=== PATIENT | female | born 1985 | race Caucasian/White ===

== ENCOUNTER 2016-10-12 16:56 | Emergency (ER) | payer MEDICAID ==
[~2016-10-12] VITALS: Ht 157.5 cm; Wt 72.6 kg
[~2016-10-12 16:56] MED LIST: ACYCLOVIR 400M400 MG PO; ALBUTEROL2 PUFFS/17 IN; ALEVE220 MG PO; AMITRIPTYLINE 225 MG PO; AMOXICILLIN 50500 MG PO; AMOXICILLIN500 M2 PO; AMOXICOT500 MG PO; APAP/BUTALBITAL1 TA1 PO; ASPIRIN 325MG325 MG PO; BACLOFEN20 MG PO; BACTRIM DS 8001 TAB PO; BACTROBAN CR, 115 GM EX; BACTROBAN2% TP; BENZONATATE100 MG PO; BIAXIN250 MG PO; BIRTH CONT; CIPRO 500MG TA500 MG PO; CIPRO500 MG PO; CLARITIN 10MG T10 MG PO; COMBIVENT INH14.7 GM IN; CORTISPORI7.5 ML/BOT OP; DARVOCET-N 1001 EACH PO; DIAZEPAM10 MG PO; DOXYCYCLINE100 M1 PO; FIORICET 325 MG1 TAB PO; FIORICET1 CAP PO; FLEXERIL10 M1 PO; FLEXERIL10 MG PO; HYDROCODONE 7.51 TAB PO; KEFLEX 500MG.500 MG PO; LORATADINE10 MG PO; LORAZEPAM1 MG/TABLE PO; LORTAB 5/500 501 TAB PO; MAXALT-MLT10 MG PO; MEDROL 4MG. DOSE4 MG PO; MOTRIN 400MG.400 MG PO; MOTRIN 600MG.600 MG PO; NAPROSYN 500MG500 MG PO; NAPROSYN500 M1 PO; NOMEDS; NOMEDS *; NOMEDS XX; NORCO 325 MG-51 TAB PO; PHENERGAN 25MG.25 M1 PO; PREDNISONE 20MG20 MG PO; PREDNISONE50 MG PO; PRILOSEC OTC20 MG PO; PROMETHAZINE25 M1 PO; PYRIDIUM 200MG200 MG PO; SEPTRA DS 800 M1 TAB PO; SKELAXIN 800MG800 MG PO; SKELAXIN800 MG PO; TESSALON PERLE100 MG PO; TORADOL10 M1 PO; TRAMADOL 50MG T50 MG PO; TYLENOL 8 HOUR650 MG PO; TYLENOL ES500 M1 PO; TYLENOL ES500 MG PO; ULTRAM 50 MG TA50 MG PO; ULTRAM ER100 MG PO; VIBRAMYCIN 100100 MG PO; VICODIN 5/500 T1 TAB PO; VICODIN 7.5/501 EACH PO; VICODIN ES 7.51 EACH PO; VOLTAREN75 MG PO; WELLBUTRIN 150150 MG PO; ZANTAC 150150 MG PO; ZOFRAN4 MG PO; ZYRTEC-D 12HR 51 TER PO; Zofran4 MG PO; [UNRECOGNIZED DRUG - OTHER] PO
--- OUTSIDE RECORDS SUMMARY | 2016-10-12 17:05 | External Medical Summary Rpt ---
Author Author [facility] Organization [facility] Address Unknown Phone Unavailable Care Team Providers Care Production Quality Analyst Name Role Phone DR BRADLEY PCP [phone] Encounter [facility] [id number] Date(s): 07/03/16 - 07/03/16 [address] [place] [address] [facility] Discharge Diagnosis: Cannabis abuse Discharge Diagnosis: Depression Discharge Diagnosis: Opioid abuse Discharge Diagnosis: Cocaine abuse Discharge Disposition: [facility] OP Attending Physician: MACI VAZQUEZ, -PSY Admitting Physician: JOHANA CANALES MD-EMR Referring Physician: BRADLEY, SELF REFERRED Reason for Visit EPS Vital Signs Most recent 1 2 to oldest [Reference Range]: Temperature Oral Oral Source (07/03/16 2:51 PM) (07/03/16 9:32 AM) Temperature Fahrenheit Fahrenheit Mode (07/03/16 2:51 PM) (07/03/16 9:32 AM) Temperature, 97.7 Deg F 97.7 Deg F Fahrenheit (07/03/16 2:51 PM) (07/03/16 9:32 AM) [96.8-99.7 Deg F] Clinical 36.5 Deg C 36.5 Deg C Temperature, (07/03/16 2:51 PM) (07/03/16 9:32 AM) C Peripheral 73 bpm 82 bpm Pulse Rate (07/03/16 2:51 PM) (07/03/16 9:32 AM) [60-100 bpm] Respiratory 18 Breaths/Min 16 Breaths/Min Rate [14-20 (07/03/16 2:51 PM) (07/03/16 9:32 AM) Breaths/Min] Blood Arm, left upper Pressure (07/03/16 2:51 PM) Location Blood Non-Invasive BP Device Pressure (07/03/16 2:51 PM) Source Blood 132/72 mmHg 116/66 mmHg Pressure (07/03/16 2:51 PM) (07/03/16 9:32 AM) [90-140/60-9 0 mmHg] Oxygen 100 % 99 % Saturation (07/03/16 2:51 PM) (07/03/16 9:32 AM) [94-100 %] Oxygen Room air Therapy Mode (07/03/16 9:32 AM) Height Stated Source (07/03/16 9:32 AM) Height Entry [place] Format (07/03/16 9:32 AM) Height/Lengt 5 ft h, BULGARIAN (07/03/16 9:32 AM) (ft) Height/Lengt 2 Inch h BULGARIAN (07/03/16 9:32 AM) CLINICALHEIG 157.48 cm HT (07/03/16 9:32 AM) Weight Stated Source, ED (07/03/16 9:32 AM) [place] Body 50 kg Weight (07/03/16 9:32 AM) Problem List Condition Effective Status Health Informant Dates Status Anxiety(Conf Active irmed) Asthma(Confi Active rmed) Depression(C Active onfirmed) Allergies, Adverse Reactions, Alerts Substance Reaction Severity Status azithromycin Active codeine Active Medications buPROPion (Wellbutrin) 50 mg, Oral, Every Day, Refills: 0 sertraline (Zoloft 25 mg oral tablet) Oral, Every Day, Refills: 0 Results ENDOCRINOLOGY Most recent 1 to oldest [Reference Range]: HCG Urine Negative Qualitative (07/03/16 10:16 AM) [Negative] TOXICOLOGY Most recent 1 to oldest [Reference Range]: UDS Amp Negative [Negative] (07/03/16 10:16 AM) UDS Eloise Negative [Negative] (07/03/16 10:16 AM) UDS Benzo Negative [Negative] (07/03/16 10:16 AM) UDS Marva Negative [Negative] (07/03/16 10:16 AM) UDS Meth Negative [Negative] (07/03/16 10:16 AM) UDS Opi Negative [Negative] (07/03/16 10:16 AM) UDS Oxy Negative [Negative] (07/03/16 10:16 AM) UDS THC Screen Positive [Negative] *ABN* (07/03/16 10:16 AM) Buprenorphin Negative e Screen, (07/03/16 10:16 AM) Urine [Negative] Alcohol [<=5 <5 mg/dL mg/dL] (07/03/16 10:12 AM) %Alcohol <0.005 % *NA* (07/03/16 10:12 AM) Immunizations No data available for this section Procedures Procedure Date Related Body Site Diagnosis LEEP [place] tooth Social History Social History Response Type Smoking Status Current every day smoker; Packs/Tins Daily 0.5 Assessment and Plan No data available for this section Hospital Discharge Instructions Patient EducationCannabis Use Disorder Depression, Adult
--- OUTSIDE RECORDS SUMMARY | 2016-10-12 17:05 | External Medical Summary Rpt ---
Author Author [facility] Organization [facility] Address Unknown Phone Unavailable Care Team Providers Care Pipe Layer Name Role Phone DR BRADLEY PCP [phone] Encounter [facility] [id number] Date(s): 07/03/16 - 07/03/16 [address] [place] [address] [facility] Discharge Diagnosis: Cannabis abuse Discharge Diagnosis: Depression [...] Stated Source (07/03/16 9:32 AM) Height Entry [place] Format (07/03/16 9:32 AM) Height/Lengt 5 ft h, CAMBODIAN (07/03/16 9:32 AM) (ft) Height/Lengt 2 Inch h CAMBODIAN (07/03/16 9:32 AM) CLINICALHEIG 157.48 cm HT (07/03/16 9:32 AM) Weight Stated Source, ED (07/03/16 9:32 AM) [place] Body 50 kg Weight (07/03/16 9:32 AM) [...] Procedure Date Related Body Site Diagnosis LEEP [place] tooth Social History Social History Response Type Smoking Status Current every day smoker; Packs/Tins Daily 0.5 Assessment and Plan No data available for this section Hospital Discharge Instructions Patient EducationCannabis Use Disorder Depression, Adult
--- OUTSIDE RECORDS SUMMARY | 2016-10-12 17:15 | External Medical Summary Rpt ---
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 Range BP 67 mm[Hg] Diastolic BP Systolic 84 mm[Hg] Heart 72 /min Rate/Pulse O2% 98 % Respiratory 18 /min Rate 02-08-2013 19:29 Name Value Interpretat Reference Comment ion Range BP 69 mm[Hg] Diastolic BP Systolic 132 mm[Hg] Heart 91 /min Rate/Pulse O2% 99 % Respiratory 20 /min Rate 01-24-2013 14:02 Name Value Interpretat Reference Comment ion Range Body 97.7 [degF] Temperature BP 70 mm[Hg] Diastolic BP Systolic 127 mm[Hg] Heart 101 /min Rate/Pulse O2% 98 % 01-24-2013 13:24 Name Value Interpretat Reference Comment ion Range BP 70 mm[Hg] Diastolic BP Systolic 127 mm[Hg] Heart 101 /min Rate/Pulse O2% 98 % Respiratory 18 /min Rate 12-14-2012 23:28 Name Value Interpretat Reference Comment ion Range BP 70 mm[Hg] Diastolic BP Systolic 112 mm[Hg] Heart 72 /min Rate/Pulse O2% 98 % Respiratory 18 /min Rate 09-18-2012 02:58 Name Value Interpretat Reference Comment ion Range BP 67 mm[Hg] Diastolic BP Systolic 117 mm[Hg] Heart 79 /min Rate/Pulse O2% 100 % Respiratory 20 /min Rate 09-18-2012 01:08 Name Value Interpretat Reference Comment ion Range BP 71 mm[Hg] Diastolic BP Systolic 125 mm[Hg] Heart 91 /min Rate/Pulse O2% 98 % Respiratory 20 /min Rate 06-27-2012 15:20 Name Value Interpretat Reference Comment ion Range Body 98.0 [degF] Temperature BP 73 mm[Hg] Diastolic BP Systolic 125 mm[Hg] Heart 59 /min Rate/Pulse O2% 99 % Respiratory 20 /min Rate 06-27-2012 13:52 Name Value Interpretat Reference Comment ion Range Body 98.3 [degF] Temperature BP 57 mm[Hg] Diastolic BP Systolic 123 mm[Hg] Heart 74 /min Rate/Pulse O2% 100 % Respiratory 20 /min Rate 06-13-2012 00:15 Name Value Interpretat Reference Comment ion Range BP 65 mm[Hg] Diastolic BP Systolic 128 mm[Hg] Heart 86 /min Rate/Pulse O2% 100 % Respiratory 20 /min Rate 05-02-2012 19:28 Name Value Interpretat Reference Comment ion Range Body 98.8 [degF] Temperature BP 66 mm[Hg] Diastolic BP Systolic 114 mm[Hg] Heart 68 /min Rate/Pulse O2% 98 % Respiratory 16 /min Rate 05-02-2012 19:27 Name Value Interpretat Reference Comment ion Range Body 98.8 [degF] Temperature BP 66 mm[Hg] Diastolic BP Systolic 114 mm[Hg] Heart 68 /min Rate/Pulse O2% 98 % Respiratory 16 /min Rate Results Labs Lab Lab Date Result Refere Interp Status Commen Order Detail nces retati t Range on B-HCG Ur Ql (02-08-2013 19:00) B-HCG 12-12-2 NEGATIV NEG complet Ur Ql 013 E ed 19:00 STREP SCREEN (RAPID) (02-08-2013 19:00) STREP 12-12-2 NEGATIV complet SCREEN 013 E ed (RAPID) 19:00 URINALYSIS/COMPLETE (02-08-2013 19:00) URINE -12-2 YELLOW YELLOW complet COLOR 013 ed 19:00 URINE 1212-2 CLEAR CLEAR complet APPEARA 013 ed NCE 19:00 URINE 02-08-2 NEGATIV NEG complet GLUCOSE 013 E ed - 19:00 DIPSTIC K URINE 12-2 NEGATIV NEG complet BILIRUB 013 E ed IN - 19:00 DIPSTIC K URINE 12-2 NEGATIV NEG complet KETONE 013 E mg/dL ed 19:00 URINE 1212-2 Greater 1.005-1 complet SPECIFI 013 than .030 ed C 19:00 or GRAVITY equal to 1.030 URINE 02-08-2 1+ NEG complet BLOOD 013 ed 19:00 URINE 12-2 6.0 UNK 5.0-8.5 complet PH 013 ed 19:00 URINE 1212-2 NEGATIV NEG complet PROTEIN 013 E mg/dL ed - 19:00 DIPSTIC K URINE 1212-2 0.2 NEG complet UROBILI 013 E.U./dL ed NOGEN - 19:00 DIPSTIC K URINE 1212-2 NEGATIV NEG complet NITRATE 013 E ed - 19:00 DIPSTIC K URINE 12-12-2 NEGATIV NEG complet LEUK 013 E ed ESTERAS 19:00 E URINE 1212-2 OCC 0 complet RBC 013 rbc/hpf ed 19:00 URINE 1212-2 3-5 O complet WBC 013 wbc/hpf ed 19:00 URINE 12-12-2 10-20 0-5 complet SQUAMOU 013 #/hpf ed S CELLS 19:00 URINE 02-08-2 2+ O complet BACTERI 013 ed A 19:00 URINE --2 2+ OCC complet MUCUS 013 ed 19:00 CHLAMYDIA AND GONORRHEA TESTING (01-02-2013 11:30) Chlamyd NEGATIV complet ia 013 E ed trachom 11:30 atis rRNA [Presen ce] in Unspeci fied specime n by Probe & target amplifi cation method Neisser NEGATIV complet ia 013 E ed gonorrh 11:30 oeae rRNA [Presen ce] in Unspeci fied specime n by Probe & target amplifi cation method CHLAMYDIA AND GONORRHEA TESTING (01-02-2013 11:30) COLLECT STELLA complet OR 013 CHAMBERLAIN 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, complet TY 013 NON-HIS ed 11:30 PANIC KIT complet EXPIRAT 013 014 ed ION 11:30 DATE SYMPTOM NO complet S 013 ed 11:30 REASON REVISIT complet FOR 013 /ANNUAL ed REQUEST 11:30 FAMILY PLANNIN G VISIT SPECIME FEMALE complet N 013 ENDOCER ed SOURCE 11:30 VICAL PREGNAN NO complet T 013 ed 11:30 CHART NA complet NUMBER 013 ed 11:30 Chlamyd Pending complet ia 013 ed trachom 11:30 atis rRNA [Presen ce] in Unspeci fied specime n by Probe & target amplifi cation method Neisser Pending complet ia 013 ed gonorrh 11:30 oeae rRNA [Presen ce] in Unspeci fied specime n by Probe & target amplifi cation method COMPREHENSIVE METABOLIC PANEL (12-14-2012 22:40) Glucose 83 74-106 complet 013 mg/dL ed Bld-mCn 22:40 c BUN 17 7-18 complet Bld-mCn 013 mg/dL ed c 22:40 Creat 1.0 0.6-1.0 complet SerPl-m 013 mg/dL ed Cnc 22:40 ESTIMAT 87 50-200 complet ED 013 ML/MIN ed CREATIN 22:40 INE CLEARAN CE GFR 68 59- complet (ESTIMA 013 ML/MIN ed ROMEL) 22:40 Sodium 12-14- 140 136-145 complet SerPl-s 013 mmoL/L ed Cnc 22:40 Potassi 3.7 3.5-5.1 complet um 013 mmoL/L ed SerPl-s 22:40 Cnc Chlorid 103 98-107 complet e 013 mmoL/L ed SerPl-s 22:40 Cnc CO2 27 21.0-32 complet SerPl-s 013 mmoL/L .0 ed Cnc 22:40 Calcium 12-14- 8.9 8.5-10. complet 013 mg/dL 1 ed SerPl-m 22:40 Cnc Prot 7.7 6.4-8.2 complet SerPl-m 013 gm/dL ed Cnc 22:40 Albumin 12-14- 4.0 3.4-5.0 complet 013 gm/dL ed SerPl-m 22:40 Cnc Globuli 3.7 1.3-3.2 complet n 013 gm/dL ed Ser-mCn 22:40 c Albumin 12-14- 1.1 UNK 1.1-1.8 complet /Glob 013 ed SerPl-m 22:40 Rto Bilirub 0.2 0.2-1.0 complet 013 mg/dL ed SerPl-m 22:40 Cnc AST 17 U/L 15-37 complet SerPl-c 013 ed Cnc 22:40 ALT 12-14- 27 U/L 30-65 complet SerPl-c 013 ed Cnc 22:40 ALP 12-14- 108 U/L 50-136 complet SerPl-c 013 ed Cnc 22:40 T4 SerPl-mCnc (12-14-2012 22:40) T4 12-14-2 7.5 4.7-13. complet SerPl-m 013 ug/dl 3 ed Cnc 22:40 THYROID STIM HORMONE (12-14-2012 22:40) THYROID 12-14- 2.62 0.358-3 complet STIM 013 uIU/ml .740 ed HORMONE 22:40 CBC with AUTO DIFF (12-14-2012 22:40) WBC # 10-17-2 9.6 4.8-10. complet Bld 013 K/MM3 8 ed Auto 22:40 RBC # 10-17-2 4.70 4.2-5.4 complet Bld 013 M/mm3 ed Auto 22:40 Hgb 10-17-2 15.1 12.2-16 complet Bld-mCn 013 g/dL .2 ed c 22:40 Hct Fr 10-17-2 45.5 % 37.0-47 complet Bld 013 .0 ed 22:40 MCV RBC 10-17-2 96.9 fl 82.2-97 complet 013 .8 ed 22:40 MCH RBC 10-17-2 32.1 pg 27-31.2 complet Qn 013 ed Auto 22:40 MEAN 10-17-2 33.1 31.8-35 complet CORPUSC 013 g/dl .4 ed ULAR 22:40 HGB CONC RDW RBC 10-17-2 13.4 % 11.5-17 complet Auto 013 .5 ed 22:40 Platele 10-17-2 237 142-424 complet t Bld 013 K/mm3 ed Ql 22:40 Manual MEAN 10-17-2 7.3 fl 7.4-10. complet PLATELE 013 4 ed T 22:40 VOLUME Granulo 10-17-2 73.0 % 37.0-80 complet cytes 013 .0 ed Fr Bld 22:40 Auto LYMPH % 10-17-2 18.4 % 10-50.0 complet 013 ed 22:40 Monocyt 10-17-2 4.5 % 1.7-9.3 complet es Fr 013 ed Bld 22:40 Auto Eosinop 10-17-2 3.7 % 0.1-12. complet hil Fr 013 0 ed Bld 22:40 Auto Basophi 10-17-2 0.3 % 0.1-2.0 complet ls Fr 013 ed Bld 22:40 Auto Granulo 10-17-2 7.0 1.8-7.8 complet cytes # 013 K/mm3 ed Bld 22:40 Auto Lymphoc 10-17-2 1.8 0.7-4.5 complet ytes Fr 013 K/mm3 ed Bld 22:40 Auto Monocyt 10-17-2 0.4 0.1-1.0 complet es # 013 K/mm3 ed Bld 22:40 Auto Eosinop 10-17-2 0.4 0.0-0.4 complet hil # 013 K/mm3 ed Bld 22:40 Auto Basophi 10-17-2 0.0 0-0.2 complet ls # 013 K/MM3 ed Bld 22:40 Auto MONOSCREEN (12-14-2012 22:40) MONOSCR 10-17-2 NEGATIV NEG complet EEN 013 E ed 22:40 URINALYSIS/COMPLETE (12-14-2012 22:40) URINE 10-17-2 YELLOW YELLOW complet COLOR 013 ed 22:40 URINE 10-17-2 CLEAR CLEAR complet APPEARA 013 ed NCE 22:40 URINE 10-17-2 NEGATIV NEG complet GLUCOSE 013 E ed - 22:40 DIPSTIC K URINE 10-17-2 NEGATIV NEG complet BILIRUB 013 E ed IN - 22:40 DIPSTIC K URINE 10-17-2 NEGATIV NEG complet KETONE 013 E mg/dL ed 22:40 URINE 10-17-2 1.025 1.005-1 complet SPECIFI 013 UNK .030 ed C 22:40 GRAVITY URINE 10-17-2 NEGATIV NEG complet BLOOD 013 E ed 22:40 URINE 10-17-2 5.5 UNK 5.0-8.5 complet PH 013 ed 22:40 URINE 10-17-2 NEGATIV NEG complet PROTEIN 013 E mg/dL ed - 22:40 DIPSTIC K URINE 10-17-2 0.2 NEG complet UROBILI 013 E.U./dL ed NOGEN - 22:40 DIPSTIC K URINE 10-17-2 NEGATIV NEG complet NITRATE 013 E ed - 22:40 DIPSTIC K URINE 10-17-2 TRACE NEG complet LEUK 013 ed ESTERAS 22:40 E URINE 10-17-2 OCC 0 complet RBC 013 rbc/hpf ed 22:40 URINE 10-17-2 3-5 O complet WBC 013 wbc/hpf ed 22:40 URINE 10-17-2 5-10 0-5 complet SQUAMOU 013 #/hpf ed S CELLS 22:40 URINE 10-17-2 1+ O complet BACTERI 013 ed A 22:40 B-HCG Ur Ql (09-18-2012 00:40) B-HCG NEGATIV NEG complet Ur Ql 013 E ed 00:40 CHLAMYDIA AND GONORRHEA TESTING (12-28-2011 15:00) Chlamyd NEGATIV complet ia 012 E ed trachom 15:00 atis rRNA [Presen ce] in Unspeci fied specime n by Probe & target amplifi cation method Neisser NEGATIV complet ia 012 E ed gonorrh 15:00 oeae rRNA [Presen ce] in Unspeci fied specime n by Probe & target amplifi cation method CHLAMYDIA AND GONORRHEA TESTING (12-28-2011 15:00) COLLECT NA complet OR 012 ed 15:00 ETHNICI WHITE, complet TY 012 NON-HIS ed 15:00 PANIC KIT complet EXPIRAT 012 013 ed ION 15:00 DATE SYMPTOM NO complet S 012 ed 15:00 REASON REVISIT complet FOR 012 /ANNUAL ed REQUEST 15:00 FAMILY PLANNIN G VISIT SPECIME URINE complet N 012 ed SOURCE 15:00 PREGNAN NO complet T 012 ed 15:00 CHART NA complet NUMBER 012 ed 15:00 Chlamyd Pending complet ia 012 ed trachom 15:00 atis rRNA [Presen ce] in Unspeci fied specime n by Probe & target amplifi cation method Neisser Pending complet ia 012 ed gonorrh 15:00 oeae rRNA [Presen ce] in Unspeci fied specime n by Probe & target amplifi cation method Procedures Procedure DOS Code Location Performer Comment IIV4 VACC [address] [facility] VIRUS 0.5 HEALTH HEALTH ML DOS DEPT. DEPT. FOR IM USE OPHTH 65666 [facility] 6 SILVERIO SILVERIO XM&EVAL COMPRE NEW PT 1/> VST DETERMINA 48324 [facility] LION 6 SILVERIO SILVERIO REFRACTIV E STATE THERAPEUT 76141 RACHEL RAMOS IC 6 [facility] PROPHYLAC INC INC TIC/DX INJECTION SUBQ/IM UNCLASSIF J3490 RACHEL RAMOS IED DRUGS 6 [facility] INC INC URINE 31163 [facility] MARCELA 5 PHYSICIAN CHUCK TEST S GROUP VISUAL COLOR CMPRSN METHS INSJ 09861 [facility] NON-BIODE 5 PHYSICIAN CHUCK GRADABLE S GROUP DRUG DELIVERY IMPLANT ETONOGEST J7307 [facility] MED[facility]ANO REL 5 PHYSICIAN CHUCK CNTRACPT S GROUP IMPL SYS INCL IMPL & SPL ECG 43492 RACHEL WOOD ROUTINE 5 [facility] W/LEAST P 12 LDS I&R ONLY RADIOLOGI 61758 [facility] C EXAM 5 MEDICAL SUSAN CHEST 2 IMAGING VIEWS ASS FRONTAL&L ATERAL ANTIBODY 30976 COMBINED COMBINED CHLAMYDIA 4 PHYSICIAN PHYSICIAN S LA S LA CUL BACT 86715 COMBINED COMBINED XCPT 4 PHYSICIAN PHYSICIAN URINE S LA S LA BLOOD/STO OL AEROBIC ISOL IAADI 42701 RACHEL RAMOS INFLUENZA 4 [facility] B VIRUS INC INC IAADI 86161 RACHEL RAMOS INFFLUENZ 4 [facility] A A VIRUS INC INC URINE 38611 [facility] 4 PHYSICIAN PHYSICIAN TEST S GROUP S GROUP VISUAL [place] [address] [facility] SPINAL 4 MEDICAL SID CANAL IMAGING LUMBAR ASS W/O CONTRAST MATERIAL 3D 20786 RACHEL RAMOS RENDERING 4 [facility] W/INTERP INC INC & POSTPROCE SS SUPERVISI ON THERAPEUT 22339 [facility] RHONDA IC 4 PHYSICIAN PONCHO PROPHYLAC S GROUP TIC/DX INJECTION SUBQ/IM INJECTION J1040 [facility] RH[facility]DA 4 PHYSICIAN PONCHO METHYLPRE S GROUP DNISOLONE ACETATE 80 MG INJECTION J1885 [facility] RH[facility]DA 4 PHYSICIAN PONCHO KETOROLAC S GROUP TROMETHAM INE PER 15 MG THERAPEUT 47184 RACHEL RAMOS IC PX 1/> 4 [facility] AREAS INC INC EACH 15 MIN EXERCISES APPL 21028 RACHEL RAMOS MODALITY 4 [facility] 1/> AREAS INC INC ELEC STIMJ UNATTENDE D PHYSICAL 65218 RACHEL RAMOS THERAPY 4 [facility] EVALUATIO INC INC N RADEX 49163 RACHEL RAMOS WRIST 4 [facility] COMPLETE INC INC MINIMUM 3 VIEWS OPHTH 87980 [facility] SCIFRES MEDICAL 4 ANG ANG XM&EVAL COMPRHNSV ESTAB PT 1/> THERAPEUT 54361 RACHEL RAMOS IC PX 1/> 4 [facility] AREAS INC INC EACH 15 MIN EXERCISES PHYSICAL 47604 RACHEL RAMOS THERAPY 4 [facility] [place] [address] MER[facility] MERHAR ABDOMEN & 4 GAR GAR PELVIS W/CONTRAS T MATERIAL URINE 70158 [facility] 3 [facility] TEST [facility] VISUAL [place] COLOR CMPRSN METHS INTRAUTER J7300 [facility] INE 3 [facility]ALTH CHUCK COPPER CLINIC OF CONTRACEP [place] TIVE INSERTION 70464 [facility] 3 [facility] CHUCK INTRAUTER CLINIC OF INE [place] DEVICE IUD CATH & 84387 [facility] SALINE/CO 3 HEALTH CHUCK NTRAST CLINIC OF SONOHYSTE [place] R/HYSTERO SALPI HYSTEROSA 62400 [place] [facility] LPINGOGRA 3 MEDICAL SUSAN PHY RS&I IMAGING ASS IAADIADOO 09801 DENIZ GUAMAN 3 DON DON INFLUENZA IAADIADOO 19811 GUAMANBOB WILLSS 3 DON DON [place] [address] SURG 3 RENEE & PATHOLOGY DUBILIER GROSS&PONCHO ROSCOPIC EXAM COLPOSCOP 61055 [facility] Y CERVIX 3 HEALTH CHUCK VAG ELTRD CLINIC OF [place] CONIZATIO N CERVIX URINE 89352 [facility] 3 [facility] CH[facility] TEST [facility] V[facility]UAL [place] COLOR CMPRSN METHS URINE 49438 RACHEL RAMOS 3 [facility] TEST INC INC VISUAL COLOR CMPRSN METHS URNLS DIP 19494 RACHEL RACHEL 3 [facility] STICK/TAB INC INC LET REAGENT AUTO MICROSCOP Y THER 37613 RACHEL RAMOS PROPH/DX 3 [facility] NJX IV INC INC PUSH SINGLE/1S T SBST/DRUG BLOOD 87734 RACHEL RAMOS COUNT 3 [facility] COMPLETE INC INC AUTO&AUTO DIFRNTL WBC COLPOSCOP 14002 [facility] Y CERVIX 0 HEALTH CHUCK BX CERVIX CLINIC OF & [place] ENDOCRV CURRETAGE CYTP 48539 PATHOLOGY PATHOLOGY CERVICAL/ 0 & & VAGINAL CYTOLOGY CYTOLOGY REQ LAB LAB INTERP PHYSICIAN CYTP C/V 44442 PATHOLOGY PATHOLOGY AUTO THIN 0 & & LYR CYTOLOGY CYTOLOGY PREPJ SCR [place] [address] PATHOLOGY PATHOLOGY SURG 0 & & PATHOLOGY CYTOLOGY CYTOLOGY LAB LAB GROSS&PONCHO ROSCOPIC EXAM CONTRACEP S4993 RACHEL RAMOS TIVE 0 [facility] CONTROL OTH BILAT 6629 RACHEL RAMOS ENDO 0 [facility] DESTRUC/O INC INC CCLUSION FALLOP TUBES DME A9900 RACHEL RAMOS SUP/ACCES 0 [employer] S/SRV-COM CENTER CENTER BOOGIE/OTH HCPCS ANES 60031 [facility] GLE HYSTEROSC 0 ANESTH OPY&/HYST OF THE EROSALPIN BLUE GOGRAPHY W/BX HYSTEROSC 60215 [facility] OPY BI 0 [facility]ALTH [facility]UCK TUBE CLINIC OF OCCLUSION [place] W/PERM IMPLNTS CONTRACEP A4267 RACHEL RAMOS TIVE 0 [facility] CENTER CONDOM MALE EACH URINE 97221 RACHEL RAMOS 0 [facility] [place] [address] RACHEL RAMOS INFUSION 0 [facility] THERAPY INC INC PROPHYLAX IS/DX EA HOUR BASIC 88584 RACHEL RAMOS METABOLIC 0 [facility] PANEL INC INC CALCIUM TOTAL GONADOTRO 41486 RACHEL RAMSO PIN 0 [facility] CHORIONIC INC INC QUALITATI VE BLOOD 38008 ARCHEL RAMOS COUNT 0 [facility] COMPLETE INC INC AUTO&AUTO DIFRNTL WBC CYTP C/V 97929 BIO BIO AUTO THIN 0 REFERNCE REFERNCE LYR LABORATOR LABORATOR PREPJ SCR IES IES MNL RESCR PHYS CYTP 84342 BIO BIO CERVICAL/ 0 REFERNCE REFERNCE VAGINAL LABORATOR LABORATOR REQ IES IES INTERP PHYSICIAN IADNA 92877 BIO BIO CHELY 0 REFERNCE REFERNCE SPECIES LABORATOR LABORATOR AMPLIFIED IES IES PROBE TQ IADNA 55506 BIO BIO GARDNEREL 0 REFERNCE REFERNCE LA LABORATOR LABORATOR VAGINALIS IES IES AMPLIFIED PROBE TQ IADNA NOS 55241 BIO BIO 0 REFERNCE REFERNCE AMPLIFIED LABORATOR LABORATOR PROBE TQ IES IES EACH ORGANISM IADNA 77098 BIO BIO HERPES 0 REFERNCE REFERNCE SOMPLX LABORATOR LABORATOR VIRUS IES IES AMPLIFIED PROBE TQ IADNA 84082 BIO BIO NEISSERIA 0 REFERNCE REFERNCE LABORATOR LABORATOR GONORRHOE IES IES AE AMPLIFIED PROBE TQ IADNA 93395 BIO BIO CHLAMYDIA 0 REFERNCE REFERNCE LABORATOR LABORATOR TRACHOMAT IES IES IS AMPLIFIED PROBE TQ RADIOLOGI 07401 [facility] C EXAM 0 Y OF MUR CHEST 2 [place] [facility] FRONTAL&L ATERAL ECG 77106 TEVIN DAMON DAMON TEVIN ROUTINE 0 MD ECG CONSULTIN W/LEAST G SRV 12 LDS I&R ONLY INITIAL 25492 EZE LOO XAVIER INPATIENT 0 CONSULT NEW/ESTAB PT 55 MIN VAGINAL 67079 [facility] DELIVERY 0 HEALTH CHUCK ONLY CLINIC OF W/POSTPAR [place] [facility] NEURAXIAL 57385 [facility] GLE LABOR 0 ANESTH ANALG/ANE OF THE S PLND BLUE VAGINAL DELIVERY CUL BACT 77620 COMBINED COMBINED XCPT 0 PHYSICIAN PHYSICIAN URINE S LA S LA BLOOD/STO OL AEROBIC ISOL 14673 [facility] NONSTRESS 0 N N TEST [facility] [place] [address] RACHEL RACHEL FIBRONECT 0 [facility] IN INC INC CERVICOVA G SECRETION S SEMI-DARRYN GLUCOSE 16986 [facility], POST 0 [facility] J GLUCOSE CLINIC OF DOSE EJ [facility] GLUCOSE 59702 [facility], TOLERANCE 0 HEALTH [facility] J TEST GTT CLINIC OF 3 SPECIMENS EJ [facility] OBSERVATI 32659 [facility] HARPEL ON/INPATI 0 PHYSICIAN [facility] PCC CARE 55 MINUTES URNLS DIP 48699 RACHEL RAMOS 0 [facility] STICK/TAB INC INC LET REAGENT [place] Y 04125 RACHEL RAMOS NONSTRESS 0 [facility] TEST INC INC [place] PREG 70072 [facility], UTERUS 0 [facility] J AFTER 1ST CLINIC OF TRIMEST [facility]NDE[facility] CLOSURE 8659 RACHEL RAMOS SKIN&SUBC 0 [facility] UTANEOUS INC INC TISSUE OTHER SITES SIMPLE 02755 BARBARA PHAMEY, REPAIR 0 EMERGENCY RUBEN S F/E/E/N/L SERVICES /M 2.5CM/< ASSOCIATE S SIMPLE 68838 BARBARA RUEDAN, REPAIR 0 EMERGENCY HENRY SCALP/NEC SERVICES O K/AX/ARMAND T/TRUNK ASSOCIATE 2.5CM/< S CLOSURE 8659 RACHEL RAMOS SKIN&SUBC 0 [facility] UTANEOUS INC INC TISSUE OTHER SITES BLOOD 41374 RACHEL RAMOS COUNT 0 [facility] COMPLETE INC INC AUTO&AUTO DIFRNTL WBC BASIC 86836 RACHEL RAMOS METABOLIC 0 [facility] PANEL INC INC CALCIUM TOTAL URNLS DIP 27333 RACHEL MELENDEZON 0 [facility] STICK/TAB INC [place] [address] RACHEL RAMOS INFUSION 0 [facility] THERAPY/P INC INC ROPHYLAXI S /DX 1ST TO 1 HR OPHTH 30614 JAMAL MONTEJO, MEDICAL 0 VISION JATIN M XM&EVAL COMPRHNSV ESTAB PT 1/> IADNA 73610 PATHOLOGY PATHOLOGY CHLAMYDIA 0 & & CYTOLOGY CYTOLOGY TRACHOMAT LAB LAB IS AMPLIFIED PROBE TQ CYTP C/V 54878 PATHOLOGY PATHOLOGY AUTO THIN 0 & & LYR CYTOLOGY CYTOLOGY PREPJ SCR LAB LAB MNL RESCR PHYS IADNA 32715 PATHOLOGY PATHOLOGY NEISSERIA 0 & & CYTOLOGY CYTOLOGY GONORRHOE LAB LAB AE AMPLIFIED PROBE TQ MOLECULAR 03429 MOLECULAR MOLECULAR DX AMP 0 TARGET PATHOLOGY PATHOLOGY MULTIPLEX LAB LAB EA ADDL NETWORK NETWORK SEQ INC INC MOLEC 77324 MOLECULAR MOLECULAR SEP&ID HI 0 RESOLU PATHOLOGY PATHOLOGY TQ EACH LAB LAB NUCLEIC NETWORK NETWORK ACID PREP INC INC MOLEC 81728 MOLECULAR MOLECULAR ISOL/XTRJ 0 HP PATHOLOGY PATHOLOGY NUCLEIC LAB LAB ACID EA NETWORK NETWORK TYPE INC INC MOLECULAR 98050 MOLECULAR MOLECULAR DX AMP 0 TARGET PATHOLOGY PATHOLOGY MULTIPLEX LAB LAB 1ST 2 NETWORK NETWORK SEQ INC INC MOLECULAR 62854 MOLECULAR MOLECULAR 0 DIAGNOSTI PATHOLOGY PATHOLOGY CS LAB LAB INTERPRET NETWORK NETWORK ATION & INC INC REPORT MUTATION 40953 MOLECULAR MOLECULAR ID 0 ENZYMATIC PATHOLOGY PATHOLOGY LAB LAB LIG/PRIME NETWORK NETWORK R XTN 1 INC INC SGM EA US PREG 70952 [facility], U[facility]US 0 [facility] W/IMAGE DCMTN [place] [facility] GONADOTRO 67145 RACHEL [facility] PIN 0 [facility] CHORIONIC INC INC QUANTITAT GREY BLOOD 07268 RACHEL [facility] COUNT 9 [facility] COMPLETE INC INC AUTO&AUTO DIFRNTL WBC IAADI 90929 R[facility]HEL [facility] INFFLUENZ 9 [facility] A A VIRUS INC INC CULTURE 91425 RACHEL [facility] BACTERIAL 9 [facility] INC [place] [address] [facility] [place] [facility] [place], ABDOMEN 9 MEDICAL ADRIENNE P W/O IMAGING CONTRAST ASSOCIATE MATERIAL S IAADI 50151 RACHEL [facility] INFLUENZA 9 [facility] B VIRUS INC INC URNLS DIP 61990 R[facility]HEL [facility] 9 [facility] STICK/TAB INC INC LET REAGENT AUTO MICROSCOP Y 3D 245[address] [facility], RENDERING 9 MEDICAL ADRIENNE P IMAGING W/INTERP& ASSOCIATE POSTPROC S DIFF WORK STATION CT PELVIS 31205 [facility] [place] [facility] [place] D[place]NY, W/O 9 MEDICAL ADRIENNE P CONTRAST IMAGING MATERIAL ASSOCIATE S URINE 09221 R[facility] 9 [facility] TEST INC INC VISUAL COLOR CMPRSN METHS BASIC 07724 RACHEL [facility] METABOLIC 9 [facility] PANEL INC INC CALCIUM TOTAL URINE 78404 R[facility]HEL [facility] 9 [facility] TEST INC INC VISUAL COLOR CMPRSN METHS RADIOLOGI 44597 [facility] [place] [facility] [place] FERNA[place], C EXAM 9 MEDICAL ERIC CHEST 2 IMAGING VIEWS ASSOCIATE FRONTAL&L S ATERAL IAADI 81579 RACHEL [facility] INFFLUENZ 9 [facility] A A VIRUS INC INC URNLS DIP 97946 DENIZ GUAMAN, Herbert DON R DON R STICK/TAB LET RGNT NON-AUTO W/O MICRSCP IAADIADOO 86980 DENIZ GUAMAN 9 DON R DON R STREPTOCO CCUS GROUP A IAADI 77348 RACHEL [facility] INFLUENZA 9 [facility] B VIRUS INC INC INCISION 85034 BARBARA OCONNOR, & REMOVAL 9 EMERGENCY ELKIN P FOREIGN SERVICES BODY SUBQ TISS ASSOCIATE SIMPLE S RADEX 42805 [facility] [place] [facility] [place] LAFLEURFERNANDO, HAND 9 MEDICAL ERIC MINIMUM 3 IMAGING VIEWS ASSOCIATE S INCI 8605 RACHEL [facility] W/REMOVAL 9 [facility] INC INC FB/DEVICE FROM SKIN & [place] [address] RACHEL [facility] AMYLASE 9 [facility] INC INC COMPREHEN 01168 RACHEL [facility] SIVE 9 [facility] METABOLIC INC INC PANEL BLOOD 61420 RACHEL [facility] COUNT 9 [facility] COMPLETE INC INC AUTO&AUTO DIFRNTL WBC URNLS DIP 76516 RACHEL [facility] 9 [facility] STICK/TAB INC INC LET REAGENT AUTO MICROSCOP Y URINE 36579 R[facility]HEL [facility] 9 [facility] TEST INC INC V[place] [address] RACHEL [facility] LIPASE 9 [facility] INC INC GONADOTRO [id number] RACHEL RAMOS PIN 9 [facility] INC QUALITATI VE RADEX 77229 MIKE LAFLEURUTCHER, FACIAL 9 [facility]ICAL ER[facility] BONES IMAGING COMPLETE ASSOCIATE MINIMUM 3 S VIEWS ORTHOPANT 13657 MIKE LAFLEURUTCHER, OGRAM 9 MEDICAL ERIC IMAGING ASSOCIATE S NONINVASI 87276 SRIRAM FLORES 9 [facility] S EAR/PULSE CORPORATI OXIMETRY ON SINGLE DETER RHYTHM 78399 RACHEL RAMOS ECG 1-3 8 [facility] INC TRACING ONLY W/O I&R GROUND A0425 [facility] 8 AMBULANCE AMBULANCE PER SERVICE SERVICE STATUTE MILE NONINVASI 45749 RACHEL RAMOS VE 8 [facility] EAR/PULSE INC INC OXIMETRY OVERNIGHT MONITOR AMB [id number] [facility] 8 AMBULANCE AMBULANCE ALS SERVICE SERVICE EMERGENCY TRANSPORT LEVEL 1 OPH 47402 FRANCISCA ESPINOSA, MEDICAL 8 JOHN A JOHN A XM&EVAL COMPRHNSV ESTAB PT 1/> FRAMES V2020 FRANCISCA ESPINOSA, PURCHASES 8 JOHN A JOHN A FITTING 12957 FRANCISCA ESPINOSA, SPECTACLE 8 JOHN A JOHN A S XCPT APHAKIA MONOFOCAL SPHERE V2100 FRANCISCA ESPINOSA, SINGLE 8 JOHN A JOHN A VISION PLANO +/- 4.00 PER LENS OPH 37623 BARBARA JIMENEZ, MEDICAL 8 [facility] XM&EVAL W W COMPRMaisha NEW PT 1/> VST DETERMINA 01285 BARBARA JIMENEZ, TION 8 [facility] REFRACTIV W W E STATE Encounters Encounter Start End Date Code Location Performer Type Date OFFICE 23955 [facility] RHONDA WADDELL 7 7 PHYSICIAN T VISIT S GROUP 15 MINUTES EMERGENCY 13446 DAVION SHAW 7 7 PHYSICIAN DEPARTMEN S, PLLC T VISIT MODERATE SEVERITY OFFICE 22038 [facility] MEDRANO OUTPATIEN 6 6 PHYSICIAN CHUCK T VISIT S GROUP 15 MINUTES EMERGENCY 58759 DAVION PHAMEY 6 6 PHYSICIAN [facility] S, [facility] T VISIT MODERATE SEVERITY EMERGENCY 96133 RACHEL 6 6 [facility] T VISIT LOW/MODER [facility]VERITY [facility]OSPITAL RACHEL - 6 6 [facility] T OFFICE 95750 [facility] TRA OUTPATIEN 5 5 [place] T NEW 45 [facility] EMERGENCY 81932 RACHLE ALFARO 5 5 [facility] T VISIT P MODERATE SEVERITY EMERGENCY 55983 RACHEL QUIROZ 4 4 [facility] T VISIT P LOW/MODER SEVERITY HOSPITAL RACHEL - 4 4 [facility] T OFFICE 93176 [facility] MED[facility]ANO OUTPATIEN 4 4 PHYSICIAN CHUCK T VISIT S GROUP 25 MINUTES OFFICE 22450 [facility] RHONDA OUTPATIEN 4 4 PHYSICIAN [place]ON[place] T VISIT S GROUP 10 MINUTES OFFICE 24654 [facility] RHONDA OUTPATIEN 4 4 PHYSICIAN PONCHO T VISIT S GROUP 15 MINUTES OFFICE 22424 [facility] RHONDA OUTPATIEN 4 4 PHYSICIAN PONCHO T VISIT S GROUP 10 MINUTES HOSPITAL RACHEL - 4 4 [facility] T OFFICE 04299 [facility] RHONDA OUTPATIEN 4 4 PHYSICIAN PONCHO T VISIT S GROUP 10 MINUTES EMERGENCY 08157 [facility] 4 4 [facility] EMERGENCY T VISIT PHYS HIGH/URGE NT SEVERITY OFFICE 69404 [facility] RHONDA OUTPATIEN 4 4 PHYSICIAN PONCHO T VISIT S GROUP 10 MINUTES HOSPITAL RACHEL - 4 4 [facility] T OFFICE 73406 [facility] RHONDA OUTPATIEN 4 4 PHYSICIAN PONCHO T VISIT S GROUP 15 MINUTES HOSPITAL RACHEL - 4 4 [facility] T OFFICE 55448 [facility] RHONDA OUTPATIEN 4 4 PHYSICIAN PONCHO T VISIT S GROUP 10 MINUTES HOSPITAL RACHEL - 4 4 [facility] T [facility] RACHEL - 4 4 [facility] T OFFICE 60567 [facility] RHONDA OUTPATIEN 4 4 PHYSICIAN PONCHO T VISIT S GROUP 10 MINUTES EMERGENCY 56300 RHONDA SHAW 4 4 PONCHO PONCHO DEPARTMEN T VISIT MODERATE SEVERITY EMERGENCY 71008 [facility] T[facility]IR DEPT 4 4 ROMEL ROMEL VISIT HIGH SEVERITY& THREAT FUN EMERGENCY 79779 RHONDA SHAW DEPT 4 4 PONCHO PONCHO VISIT HIGH SEVERITY& THREAT FUNJ Emergency JHONNY MCKAY DO (ER) 3 19:12 3 20:16 [facility] Emergency JHONNY Eddy MD (ER) 3 12:48 3 14:06 [facility] Emergency JHONNY Shaw MD (ER) 3 22:22 3 23:29 [facility] Emergency JHONNY Shaw MD (ER) 3 00:15 3 03:00 [facility] Emergency JHONNY DIAZ (ER) 3 21:15 3 21:30 [facility] A Emergency JHONNY Lynn MD (ER) 3 13:32 3 15:22 [facility] Emergency JHONNY Carrera MD (ER) 3 00:03 3 00:16 [facility] Emergency JHONNY Malhotra MD (ER) 3 19:18 3 19:28 [facility] OFFICE 66054 DENIZ GUAMAN OUTPATIEN 3 3 DON DON T VISIT 15 MINUTES HOSPITAL RACHEL - 3 3 [facility] T OFFICE 07189 DENIZ GUAMAN OUTPATIEN 3 3 DON DON T VISIT 15 MINUTES HOSPITAL RACHEL - 3 3 [facility] OUTPATIEN INC T EMERGENCY 22908 RACHEL 3 3 [facility] DEPARTMEN INC T VISIT MODERATE SEVERITY EMERGENCY 34818 BARBARA WAGNER 3 3 EMERG[facility]Y [facility] T VISIT HIGH/URGE NT SEVERITY [facility] RACHEL - 0 0 [facility] OUTPATIEN INC T OFFICE 38773 RACHEL RAMOS OUTPATIEN [address] [employer] [facility] RACHEL - 0 0 [facility] OUTPATIEN INC T OFFICE 78949 [place] OUTPATIEN 0 0 MEDICAL CLAIR T VISIT SERV 10 FOUNDATIO MINUTES OFFICE 25471 [place] OUTPATI[place] 0 0 MEDICAL CLAIR T NEW 45 SERV MINUTES FOUNDATIO OFFICE 52664 DENIZ GUAMAN OUTPATIEN 0 0 DON R DON R T VISIT 15 MINUTES [facility]OSPITAL [facility] - 0 0 N OUTPATIEN [facility] RACHEL - 0 0 [facility] INC T OFFICE 06583 [facility] 0 0 [facility]FR[facility] J T VISIT 5 CLINIC OF MINUTES [facility] RACHEL - 0 0 [facility] OUTPATIEN INC T OFFICE 76346 RACHEL OUTPATIEN 0 0 [facility] T VISIT INC 10 MINUTES [facility] RACHEL - 0 0 [facility] OUTPATIEN INC T EMERGENCY 12905 BARBARA SHAW, 0 0 EMERGENCY [facility] DEPARTMEN SERVICES T VISIT MODERATE ASSOCIATE SEVERITY S EMERGENCY 08304 RACHEL 0 0 [facility] T VISIT LOW/MODER SEVERITY [facility]OSPITAL RACHEL - 0 0 [facility] OUT[facility] INC T EMERGENCY 93130 BARBARA LYNN, 0 0 EMERGENCY [facility] DEPARTMEN SERVICES O T VISIT HIGH/URGE ASSOCIATE NT S SEVERITY EMERGENCY 48764 RACHEL 0 0 [facility] T VISIT LIMITED/M INOR PROB HOSPITAL RACHEL - 0 0 [facility] OUT[facility]EN [facility] T OFFICE 42393 SCALF, SCALF, CONSULTAT 0 0 PROMISE A PROMISE A ION NEW/ESTAB PATIENT 40 MIN EMERGENCY 51753 RACHEL 0 0 [facility] DEPARTMEN INC T VISIT MODERATE SEVERITY HOSPITAL RACHEL - 0 0 [facility] OUTPATIEN [facility] T EMERGENCY 41466 BARBARA SHAW, DEPT 0 0 EMERGENCY [facility] VISIT SERVICES HIGH SEVERITY& ASSOCIATE THREAT S [facility] OFFICE 50945 DENIZ GUAMAN OUTPATIEN 0 0 DON R DON R T VISIT 15 MINUTES HOSPITAL RACHEL - 0 0 [facility] T OFFICE 34013 [facility] 9 9 [facility] JO[facility] ALFREDO Singh T VISIT CLINIC OF 15 MINUTES [facility] OFFICE 75149 DENIZ GUAMAN OUTPATIEN 9 9 DON R DON R T VISIT 15 MINUTES EMERGENCY 84414 BARBARA SHAW, DEPT 9 9 EMERGENCY [facility] VISIT SERVICES HIGH SEVERITY& ASSOCIATE THREAT S FUN EMERGENCY 06957 RACHEL 9 9 [facility] DEPARTMEN INC T VISIT MODERATE SEVERITY HOSPITAL RACHEL - 9 9 [facility] OUTPAT[facility]EN INC T EMERGENCY 26485 BARBARA CARRERA, 9 9 EMERGENCY [facility] DEPARTMEN SERVICES T VISIT HIGH/URGE ASSOCIATE NT S SEVERITY EMERGENCY 30615 RACHEL 9 9 [facility] DEPARTMEN INC T VISIT LOW/MODER SEVERITY HOSPITAL RACHEL - 9 9 [facility] OUTPATIEN INC T EMERGENCY 24504 BARBARA SHAW, 9 9 EMERGENCY [facility] T VISIT MODERATE ASSOCIATE SEVERITY S HOSPITAL RACHEL - 9 9 [facility] OUTPATIEN INC T EMERGENCY 15129 BARBARA MOORE, 9 9 EMERGENCY [place] DEPARTMEN SERVICES M T VISIT HIGH/URGE ASSOCIATE NT S SEVERITY EMERGENCY 77245 RACHEL 9 9 [facility] DEPARTMEN INC T VISIT MODERATE SEVERITY [facility]OSPITAL RACHEL - 9 9 [facility] OUTPATI[facility] INC T OFFICE 46739 DENIZ GUAMAN OUTPATIEN 9 9 DON R DON R T VISIT 15 MINUTES HOSPITAL RACHEL - 9 9 [facility] T [facility]OSPITAL RACHEL - 9 9 [facility] OUT[facility] INC T EMERGENCY 10689 BARBARA OCONNOR, 9 9 EMERGENCY [facility] DEPARTMEN SERVICES T VISIT MODERATE ASSOCIATE SEVERITY S EMERGENCY 17259 RACHEL 9 9 [facility] DEPARTMEN INC T VISIT LOW/MODER SEVERITY OFFICE 60476 DENIZ GUAMAN OUTPATIEN 9 9 DON R DON R T VISIT 15 MINUTES EMERGENCY 70318 RACHEL 9 9 [facility] DEPART[facility] INC T VISIT MODERATE SEVERITY EMERGENCY 26351 BARBARA SHAW, 9 9 EMERGENCY [facility] DEPARTMEN SERVICES T VISIT HIGH/URGE ASSOCIATE NT S SEVERITY HOSPITAL RACHEL - 9 9 [facility] OUT[facility] INC T EMERGENCY 83714 BARBARA SMALL, 9 9 EMERGENCY [facility] DEPARTMEN SERVICES T VISIT MODERATE ASSOCIATE SEVERITY S HOSPITAL RACHEL - 9 9 [facility] OUTPAT[facility] INC T EMERGENCY 64674 RACHEL 9 9 [facility] DEPARTMEN INC T VISIT LIMITED/M INOR PROB EMERGENCY 54174 RACHEL 9 9 [facility] DEPARTMEN INC T VISIT LIMITED/M INOR PROB HOSPITAL RACHEL - 9 9 [facility] OUTPAT[facility] INC T [facility]PITAL RACHEL - 9 9 [facility] OUT[facility] INC T EMERGENCY 00451 RACHEL 9 9 [facility] DEPARTMEN INC T VISIT LIMITED/M INOR PROB EMERGENCY 19003 BARBARA LYNN, 9 9 EMERGENCY [facility] DEPARTMEN SERVICES O T VISIT MODERATE ASSOCIATE SEVERITY S HOSPITAL RACHEL - 9 9 [facility] T [facility]PITAL RACHEL - 9 9 [facility] T EMERGENCY 06030 ELIZABETH SHAW, 9 9 [facility] T VISIT ON MODERATE SEVERITY HOSPITAL RACHEL - 9 9 [facility] OUT[facility] T EMERGENCY 67647 ELIZABETH SHAW, 9 9 [facility] T VISIT ON HIGH/URGE NT SEVERITY HOSPITAL RACHEL - 8 8 [facility] OUTPATIEN INC T EMERGENCY 14766 RACHEL 8 8 [facility] DEPARTMEN INC T VISIT LOW/MODER SEVERITY
--- OUTSIDE RECORDS SUMMARY | 2016-10-12 17:15 | External Medical Summary Rpt ---
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 COMPREHEN 29216 RACHEL [facility]OS SIVE 9 [facility] METABOLIC INC INC PANEL BLOOD 87765 RACHEL RAMOS COUNT 9 [facility] COMPLETE INC INC AUTO&AUTO DIFRNTL WBC URNLS DIP 34075 RACHEL RAMOS 9 [facility] STICK/TAB INC INC LET REAGENT AUTO MICROSCOP Y URINE 99698 RACHEL RAMOS 9 [facility] TEST INC INC [place] [address] RACHEL RAMOS LIPASE 9 [facility] INC INC GONADOTRO 57064 RACHEL RAMOS PIN 9 [facility] CHORIONIC INC INC QUALITATI VE RADEX 99429 MIKE LAFLEURUTCHER, FACIAL 9 MEDICAL ERIC BONES IMAGING COMPLETE ASSOCIATE MINIMUM 3 S VIEWS ORTHOPANT 94394 MIKE LAFLEURUTCHER, OGRAM 9 MEDICAL ERIC IMAGING ASSOCIATE S NONINVASI 14103 SRIRAM FLORES 9 [facility] S EAR/PULSE CORPORATI OXIMETRY ON SINGLE DETER RHYTHM 21111 RACHEL RAMOS ECG 1-3 8 [facility] LEADS INC INC TRACING ONLY W/O I&R GROUND A0425 [facility] 8 AMBULANCE AMBULANCE PER SERVICE SERVICE STATUTE MILE NONINVASI 32091 RACHEL RAMOS VE 8 [facility] EAR/PULSE INC INC OXIMETRY OVERNIGHT MONITOR AMB A0427 [facility] SERVICE 8 AMBULANCE AMBULANCE ALS SERVICE SERVICE EMERGENCY TRANSPORT LEVEL 1 OPH 57470 FRANCISCA ESPINOSA, MEDICAL 8 JOHN A JOHN A XM&EVAL COMPRHNSV ESTAB PT 1/> FRAMES V2020 FRANCISCA ESPINOSA, PURCHASES 8 JOHN A JOHN A FITTING 30529 FRANCISCA ESPINOSA, SPECTACLE 8 JOHN A JOHN A S XCPT APHAKIA MONOFOCAL SPHERE V2100 FRANCISCA ESPINOSA, SINGLE 8 JOHN A JOHN A VISION PLANO +/- 4.00 PER LENS OPH 71109 BARBARA JIMENEZ, MEDICAL 8 [facility] XM&EVAL W W COMPRMaisha NEW PT 1/> VST DETERMINA 41610 BARBARA JIMENEZ, TION 8 [facility] REFRACTIV W W E STATE Encounters Encounter Start End Date Code Location Performer Type Date OFFICE 38223 [facility] RHONDA WADDELL 7 7 PHYSICIAN T VISIT S GROUP 15 MINUTES EMERGENCY 51635 DAVION SHAW 7 7 PHYSICIAN DEPARTMEN S, PLLC T VISIT MODERATE SEVERITY OFFICE 30162 [facility] MEDRANO OUTPATIEN 6 6 PHYSICIAN CHUCK T VISIT S GROUP 15 MINUTES EMERGENCY 92494 DAVION PHAMEY 6 6 PHYSICIAN [facility] S, [facility] T VISIT MODERATE SEVERITY EMERGENCY 33048 RACHEL 6 6 [facility] INC T VISIT LOW/MODER SEVERITY HOSPITAL RACHEL - 6 6 [facility] T OFFICE [address] [facility] TRA OUTPATIEN 5 5 [place] T NEW 45 ORTHOPAED MINUTES [facility] EMERGENCY 12902 RACHEL ALFARO 5 5 [facility] T VISIT P MODERATE SEVERITY EMERGENCY 35958 RACHEL QUIROZ 4 4 [facility] T VISIT P LOW/MODER SEVERITY HOSPITAL RACHEL - 4 4 [facility] OUT[facility] INC T OFFICE 65416 [facility] MEDRANO OUTPATIEN 4 4 PHYSICIAN CHUCK T VISIT S GROUP 25 MINUTES OFFICE 57528 [facility] RHONDA OUTPATIEN 4 4 PHYSICIAN [place]ON[place] T VISIT S GROUP 10 MINUTES OFFICE 85809 [facility] RHONDA OUTPATIEN 4 4 PHYSICIAN [place]ONCHO T VISIT S GROUP 15 MINUTES OFFICE 85293 [facility] RHONDA OUTPATIEN 4 4 PHYSICIAN PONCHO T VISIT S GROUP 10 MINUTES HOSPITAL RACHEL - 4 4 [facility] OUT[facility] INC T OFFICE 70086 [facility] RHONDA OUTPATIEN 4 4 PHYSICIAN PONCHO T VISIT S GROUP 10 MINUTES EMERGENCY 25421 [facility] 4 4 [facility] EMERGENCY T VISIT PHYS HIGH/URGE NT SEVERITY OFFICE 67123 [facility] RHONDA OUTPATIEN 4 4 PHYSICIAN PONCHO T VISIT S GROUP 10 MINUTES HOSPITAL RACHEL - 4 4 [facility] OUTPATIEN INC T OFFICE 71410 [facility] RHONDA OUTPATIEN 4 4 PHYSICIAN PONCHO T VISIT S GROUP 15 MINUTES HOSPITAL RACHEL - 4 4 [facility] OUTPATIEN INC T OFFICE 23464 [facility] RHONDA OUTPATIEN 4 4 PHYSICIAN PONCOH T VISIT S GROUP 10 MINUTES HOSPITAL RACHEL - 4 4 [facility] OUTPATIEN INC T HOSPITAL RACHEL - 4 4 [facility] OUTPATIEN INC T OFFICE 42757 [facility] RHONDA OUTPATIEN 4 4 PHYSICIAN PONCHO T VISIT S GROUP 10 MINUTES EMERGENCY 82675 RHONDA SHAW 4 4 PONCHO PONCHO DEPARTMEN T VISIT MODERATE SEVERITY EMERGENCY 87935 [facility] T[facility]IR DEPT 4 4 ROMEL ROMEL VISIT HIGH SEVERITY& THREAT FUN EMERGENCY 06591 RHONDA SHAW DEPT 4 4 PONCHO PONCHO VISIT HIGH SEVERITY& THREAT FUNJ Emergency JHONNY MCKAY DO (ER) 3 19:12 3 20:16 [facility] Emergency JHONNY Eddy MD (ER) 3 12:48 3 14:06 [facility] Emergency JHONNY Shaw MD (ER) 3 22:22 3 23:29 [facility] Emergency JHONNY Shaw MD (ER) 3 00:15 3 03:00 [facility] Emergency JHONNY DIAZ (ER) 3 21:15 3 21:30 [facility] A Emergency JHONNY Lynn MD (ER) 3 13:32 3 15:[address] [facility] Emergency JHONNY Carrera MD (ER) 3 00:03 3 00:16 [place] Emergency JHONNY Malhotra MD (ER) 3 19:18 3 19:28 [facility] OFFICE 31091 DENIZ GUAMAN OUTPATIEN 3 3 DON DON T VISIT 15 MINUTES HOSPITAL RACHEL - 3 3 [facility] OUTPATIEN INC T OFFICE 65319 DENIZ GUAMAN OUTPATIEN 3 3 DON DON T VISIT 15 MINUTES HOSPITAL RACHEL - 3 3 [facility] OUTPATIEN INC T EMERGENCY 64231 RACHEL 3 3 [facility] DEPARTMEN INC T VISIT MODERATE SEVERITY EMERGENCY 66433 BARBARA WAGNER 3 3 EMERGENCY [facility] SERVICES T VISIT HIGH/URGE NT SEVERITY [facility] RACHEL - 0 0 [facility] OUTPATIEN INC T OFFICE 86995 RACHEL RAMOS OUTPATIEN 0 0 [place] [employer] 20 CENTER CENTER [facility] RACHEL - 0 0 [facility] OUTPATIEN INC T OFFICE 27268 [place] NEELY OUTPATIEN 0 0 MEDICAL CLAIR T VISIT SERV 10 FOUNDATIO MINUTES OFFICE 49457 [place] NE[place] OUTPATIEN 0 0 MEDICAL CLAIR T NEW 45 SERV MINUTES FOUNDATIO OFFICE 08124 DENIZ GUAMAN OUTPATIEN 0 0 DON R DON R T VISIT 15 MINUTES HOSPITAL [facility] - 0 0 N OUTPATIEN [facility] RACHEL - 0 0 [facility] OUTPATIEN INC T OFFICE 53594 [facility] 0 0 [facility]FR[facility] J T VISIT 5 CLINIC OF MINUTES [facility] RACHEL - 0 0 [facility] OUTPATIEN INC T OFFICE 21842 RACHEL OUTPATIEN 0 0 [facility] T VISIT INC 10 MINUTES [facility] RACHEL - 0 0 [facility] OUTPATIEN INC T EMERGENCY 58213 BARBARA SHAW, 0 0 EMERGENCY [facility] DEPARTMEN SERVICES T VISIT MODERATE ASSOCIATE SEVERITY S EMERGENCY 05261 RACHEL 0 0 [facility] DEPARTMEN INC T VISIT LOW/MODER SEVERITY HOSPITAL RACHEL - 0 0 [facility] OUTPATIEN INC T EMERGENCY 17389 BARBARA LYNN, 0 0 EMERGENCY [facility] DEPARTMEN SERVICES O T VISIT HIGH/URGE ASSOCIATE NT S SEVERITY EMERGENCY 30147 RACHEL 0 0 [facility] DEPARTMEN INC T VISIT LIMITED/M INOR PROB HOSPITAL RACHEL - 0 0 [facility] OUTPAT[facility] T OFFICE 43254 SCALF, SCALF, CONSULTAT 0 0 PROMISE A PROMISE A ION NEW/ESTAB PATIENT 40 MIN EMERGENCY 65960 RACHEL 0 0 [facility] DEPARTMEN INC T VISIT MODERATE SEVERITY HOSPITAL RACHEL - 0 0 [facility] OUTPAT[facility] T EMERGENCY 64280 BARBARA SHAW, DEPT 0 0 EMERGENCY [facility] VISIT SERVICES HIGH SEVERITY& ASSOCIATE THREAT S [facility] OFFICE 64797 DENIZ GUAMAN OUTPATIEN 0 0 DON R DON R T VISIT 15 MINUTES HOSPITAL RACHEL - 0 0 [facility] OUTPATIEN INC T OFFICE 21358 [facility] 9 9 [facility] Singh T VISIT CLINIC OF [facility] OFF[facility] 31750 DENIZ GUAMAN OUTPATIEN 9 9 DON R DON R T VISIT 15 MINUTES EMERGENCY 38231 BARBARA SHAW, DEPT 9 9 EMERGENCY [facility] VISIT SERVICES HIGH SEVERITY& ASSOCIATE THREAT S FUN EMERGENCY 13441 RACHEL 9 9 [facility] DEPARTMEN INC T VISIT MODERATE SEVERITY HOSPITAL RACHEL - 9 9 [facility] OUTPATIEN INC T EMERGENCY 86636 BARBARA CARRERA, 9 9 EMERGENCY [facility] DEPARTMEN SERVICES T VISIT HIGH/URGE ASSOCIATE NT S SEVERITY EMERGENCY 29917 RACHEL 9 9 [facility] DEPARTMEN INC T VISIT LOW/MODER SEVERITY HOSPITAL RACHEL - 9 9 [facility] OUTPATIEN INC T EMERGENCY 60380 BARBARA SHAW, 9 9 [facility] T VISIT MODERATE ASSOCIATE SEVERITY S HOSPITAL RACHEL - 9 9 [facility] OUTPATIEN INC T EMERGENCY 54354 BARBARA MOORE, 9 9 EMERGENCY [facility] DEPARTMEN SERVICES M T VISIT HIGH/URGE ASSOCIATE NT S SEVERITY EMERGENCY 59558 RACHEL 9 9 [facility] DEPARTMEN INC T VISIT MODERATE SEVERITY HOSPITAL RACHEL - 9 9 [facility] OUTPATIEN INC T OFFICE 88572 DENIZ GUAMAN OUTPATIEN 9 9 DON R DON R T VISIT 15 MINUTES HOSPITAL RACHEL - 9 9 [facility] OUTPATIEN INC T HOSPITAL RACHEL - 9 9 [facility] OUTPATIEN INC T EMERGENCY 08566 BARBARA OCONNOR, 9 9 EMERGENCY [facility] DEPARTMEN SERVICES T VISIT MODERATE ASSOCIATE SEVERITY S EMERGENCY 63834 RACHEL 9 9 [facility] DEPARTMEN INC T VISIT LOW/MODER SEVERITY OFFICE 83115 DENIZ GUAMAN OUTPATIEN 9 9 DON R DON R T VISIT 15 MINUTES EMERGENCY 53318 RACHEL 9 9 [facility] DEPARTMEN INC T VISIT MODERATE SEVERITY EMERGENCY 84418 BARBARA SHAW, 9 9 EMERGENCY [facility] DEPARTMEN SERVICES T VISIT HIGH/URGE ASSOCIATE NT S SEVERITY HOSPITAL RACHEL - 9 9 [facility] OUTPATIEN INC T EMERGENCY 06460 BARBARA SMALL, 9 9 EMERGENCY [facility] DEPARTMEN SERVICES T VISIT MODERATE ASSOCIATE SEVERITY S HOSPITAL RACHEL - 9 9 [facility] OUTPATIEN INC T EMERGENCY 32971 RACHEL 9 9 [facility] DEPARTMEN INC T VISIT LIMITED/M INOR PROB EMERGENCY 23730 RACHEL 9 9 [facility] DEPARTMEN INC T VISIT LIMITED/M INOR PROB HOSPITAL RACHEL - 9 9 [facility] OUTPATIEN INC T HOSPITAL RACHEL - 9 9 [facility] OUTPATIEN INC T EMERGENCY 24217 RACHEL 9 9 [facility] DEPARTMEN INC T VISIT LIMITED/M INOR PROB EMERGENCY 99952 BARBARA LYNN, 9 9 EMERGENCY [facility] DEPARTMEN SERVICES O T VISIT MODERATE ASSOCIATE SEVERITY S HOSPITAL RACHEL - 9 9 [facility] OUTPATIEN INC T HOSPITAL RACHEL - 9 9 [facility] OUTPATIEN INC T EMERGENCY 12988 ELIZABETH SHAW, 9 9 [facility] COR[facility] T VISIT ON MODERATE SEVERITY HOSPITAL RACHEL - 9 9 [facility] OUTPATIEN INC T EMERGENCY 49494 ELIZABETH SHAW, 9 9 [facility] COR[facility] T VISIT ON HIGH/URGE NT SEVERITY HOSPITAL RACHEL - 8 8 [facility] OUTPATIEN INC T EMERGENCY 30443 RACHEL 8 8 [facility] DEPARTMEN INC T VISIT LOW/MODER SEVERITY
--- NOTE | 2016-10-12 17:20 | Urgent Treatment Center Report ---
History of Present Issue Date/Time Seen by Provider 10/12/16 1718 Visit Reason Pt arrived:Walked Presenting Problem:PT STATES R EYE REDNESS, WATERY FOR FOUR DAYS. STATES WANDA EAR PAIN AND SORE THROAT FOR TWO DAYS Location if Accident: Onset of symptoms date/time:/ or onset unknown for:MEDICAL HX UNKNOWN Have you (or family members/close friends) recently traveled outside the [place]? N If Yes, where/when: Have you had exposure to infectious disease within the past month? TB? Other? Specify: Patient state that he has noticed that he had some redness in her right eye for the last few days States that they have been watering and then she awoke with them matted together. State that she has also had sorethroat and both her ears have been huring. States that her symptoms have continued to get worse so she came in to get checked out ALLERGIES Coded Allergies: azithromycin (04/05/16) codeine (04/05/16) History Medical History General CAD? No Angina: No FL: No Hypertension? No Hyperlipidemia? No CHF? No DVT? No PE? No COPD? No Asthma? Yes Anemia? No GERD? No Gastric ulcers? No GI Bleed? No Hernia? No Thyroid Problems? No Hypothyroidism? No CVA? No Seizures? No Diabetes? No Insulin Dependent: No Insulin Pump: No Home FSBS? No Renal Insuffiency? No UTI? No Stones? No BPH? No GB Disease: No Nephritic Syndrome? No Asplenia? No Hepatitis? Yes Sickle Cell Disease? No Arthritis? No Migraines? No Cataracts? No Glaucoma? No MRSA? No HIV? No TB? No Anxiety? Yes Depression? 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 Physical Exam Vital Signs Vital Signs Date Time Temp Pulse Resp B/P Pulse O2 O2 Flow FiO2 Ox Delivery Rate 10/120 98.4 70 20 102/66 100 General Appearance Patient appears ill sitting on exam chair, right eye red Eye Exam - bilateral eye PERRL, bilateral eye EOMI Ear, Nose, Throat throat red, irritated swollen no exudate but drainage noted Respiratory Status Yes: trachea midline, chest symmetrical, non tender chest. No: respiratory distress. 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 No Results/Orders Laboratory Tests 10/12/16 1738: Group A Strep Screen NOT DETECTED Orders Procedure Date/time Status [facility] STREP SCREEN 10/12 1736 Complete Departure Departure Time of Disposition 175 Disposition DC Home or Self Care(routine) Clinical Impression Primary Impression: Conjunctivitis Qualifiers: Conjunctivitis type: unspecified Laterality: right Qualified Code: H10.9 - Unspecified conjunctivitis Secondary Impressions: Upper respiratory infection Qualifiers: URI type: acute tonsillitis Pharyngitis/tonsillitis etiology: unspecified etiology Qualified Code: J03.90 - Acute tonsillitis, unspecified Condition STABLE Referrals Colin SEBASTIAN,Shawn Colon (Family): 4 Days-Call Office if no improvement Patient Instructions Conjunctivitis, DI for Conjunctivitis, Sore Throat Additional Instructions Take medication as prescribed Follow up with family doctor if needed Wash hands well after applying drops in eye If you are wearing contacts you must throw that pair away as they are now contaminated * Monitor Temp. Tylenol and/or Ibuprofen as needed. ER if fever is no less than 101 despite alternating Tylenol and Ibuprofen * Encourage fluids, water, Gatorade, powerade, pedialyte if /toddler/or child * Warm salt water gargles for throat irritation *Warm fluids *Sore throat lozenges *Sleep elevated Discharge Counseling Counseled pt/family regarding diagnosis, medications/RX, home care, follow up needs Prescriptions Current Visit Scripts CEFDINIR (Cefdinir) 300 MG PO BID #14 CAP GENTAMICIN SULFATE (GENTAMICIN 0.3% OPHTH SOLN) 1-2 DROP OP Q4 #1 BOT TO AFFECTED EYE(S) at 1802
--- OUTSIDE RECORDS SUMMARY | 2016-10-12 17:20 | External Medical Summary Rpt ---
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 ATION & INC INC REPORT MUTATION 04473 MOLECULAR MOLECULAR ID 0 ENZYMATIC PATHOLOGY PATHOLOGY LAB LAB LIG/PRIME NETWORK NETWORK R XTN 1 INC INC SGM EA CYTP C/V 68034 PATHOLOGY PATHOLOGY AUTO THIN 0 & & LYR CYTOLOGY CYTOLOGY PREPJ SCR LAB LAB MNL RESCR PHYS US PREG 79598 [facility], UTERUS 0 [facility] J REAL TIME CLINIC OF W/IMAGE DCMTN [place] [employer] GONADOTRO 77507 RACHEL RAMOS PIN 0 [facility] CHORIONIC INC INC QUANTITAT GREY IAADI 54240 RACHEL RAMOS INFLUENZA 9 [facility] B VIRUS INC INC IAADI 47745 RACHEL RAMOS INFFLUENZ 9 [facility] A A VIRUS INC INC CULTURE 30175 RACHEL RAMOS BACTERIAL 9 [facility] INC INC QUANTTATI VE COLONY COUNT URINE URINE 60724 RACHEL RAMOS 9 [facility] TEST INC INC VISUAL COLOR CMPRSN METHS BASIC 68524 RACHEL RAMOS METABOLIC 9 [facility] PANEL INC INC CALCIUM TOTAL 3D 04027 [place] D[place], RENDERING 9 MEDICAL ADRIENNE P IMAGING W/INTERP& ASSOCIATE POSTPROC S DIFF WORK STATION CT PELVIS 80559 [place] D[place], W/O 9 [facility] [place] [address] [place] DAN[place], ABDOMEN 9 MEDICAL ADRIENNE P W/O IMAGING CONTRAST ASSOCIATE MATERIAL S BLOOD 07793 RACHEL RAMOS COUNT 9 [facility] COMPLETE INC INC AUTO&AUTO DIFRNTL WBC URNLS DIP 00676 RACHEL RAMOS 9 [facility] STICK/TAB INC INC LET REAGENT AUTO MICROSCOP Y URINE 19222 RACHEL RAMOS 9 [facility] TEST INC INC VISUAL COLOR CMPRSN METHS RADIOLOGI 23548 RACHEL RAMOS C EXAM 9 [facility] CHEST 2 INC INC VIEWS FRONTAL&L ATERAL URNLS DIP 06566 GUAMAN, GUAMAN, 9 DON R DON R STICK/TAB LET RGNT NON-AUTO W/O MICRSCP IAADI 46785 RACHEL RAMOS INFFLUENZ 9 [facility] A A VIRUS INC INC IAADI 47341 RACHEL RAMOS INFLUENZA 9 [facility] B VIRUS INC INC IAADIADOO 61937 DENIZ GUAMAN, 9 DON R DON R STREPTOCO CCUS GROUP A INCI 8605 RACHEL RAMOS W/REMOVAL 9 [facility] INC INC FB/DEVICE FROM SKIN & SUBQ TISSUE INCISION 05064 BARBARA OCONNOR, & REMOVAL 9 EMERGENCY ELKIN P FOREIGN SERVICES BODY SUBQ TISS ASSOCIATE SIMPLE S RADEX 64346 RACHEL RAMOS HAND 9 [facility] MINIMUM 3 INC INC VIEWS URNLS DIP 64879 RACHEL RAMOS 9 [facility] STICK/TAB INC INC LET REAGENT AUTO MICROSCOP Y BLOOD 29111 RACHEL RAMOS COUNT 9 [facility] COMPLETE INC INC AUTO&AUTO DIFRNTL WBC URINE 63832 RACHEL RAMOS 9 [facility] TEST INC INC [place] [address] RACHEL RAMOS AMYLASE 9 [facility] INC INC COMPREHEN 35778 RACHEL RAMOS SIVE 9 [facility] [address] RACHEL RAMOS LIPASE 9 [facility] INC INC GONADOTRO 06790 RACHEL RAMOS PIN 9 [facility] CHORIONIC INC INC QUALITATI VE ORTHOPANT 93142 AV MOBLEY 9 MEDICAL ERIC IMAGING ASSOCIATE S NONINVASI 61355 SRIRAM FLORES 9 NATIONAL RUBEN S EAR/PULSE CORPORATI OXIMETRY ON SINGLE DETER RADEX 38942 MIKE KING FACIAL 9 MEDICAL ERIC BONES IMAGING COMPLETE ASSOCIATE MINIMUM 3 S VIEWS AMB A0427 [facility] SERVICE 8 AMBULANCE AMBULANCE ALS SERVICE SERVICE EMERGENCY TRANSPORT LEVEL 1 GROUND A0425 [facility] 8 AMBULANCE AMBULANCE PER SERVICE SERVICE STATUTE MILE RHYTHM 50378 RACHEL RAMOS ECG 1-[address] [facility] HOSP LEADS INC INC TRACING ONLY W/O I&R NONINVASI 06557 RACHEL RACHEL VE [address] [facility] HOSP EAR/PULSE INC INC OXIMETRY OVERNIGHT MONITOR OPHTH 87410 [facility] ESPINOSA MEDICAL 8 JOHN A JOHN A XM&EVAL COMPRHNSV ESTAB PT 1/> FITTING 37294 FRANCISCA ESPINOSA SPECTACLE 8 JOHN A JOHN A S XCPT APHAKIA MONOFOCAL FRAMES V2020 FRANCISCA ESPINOSA, PURCHASES 8 JOHN A JOHN A SPHERE V2100 FRANCISCA ESPINOSA, SINGLE 8 JOHN A JOHN A VISION PLANO +/- 4.00 PER LENS OPHTH 88199 BARBARA JIMENEZ, MEDICAL 8 [facility] XM&EVAL W W COMPRE NEW PT 1/> VST DETERMINA 15543 BARBARA JIMENEZ TISHILO 8 [facility] REFRACTIV W W E STATE Encounters Encounter Start End Date Code Location Performer Type Date OFFICE 77522 [facility] RHONDA WADDELL 7 7 PHYSICIAN T VISIT S GROUP 15 MINUTES EMERGENCY 98215 DAVION ELLIS 7 7 PHYSICIAN [facility] T VISIT MODERATE SEVERITY OFFICE 28031 [facility] PHYSICIAN CHUCK T VISIT S GROUP 15 MINUTES HOSPITAL RACHEL - 6 6 [facility] 19461 [facility] 6 6 [facility] T VISIT LOW/MODER SEVERITY EMERGENCY 25118 DAVION ELLIS 6 6 PHYSICIAN [facility] S, [facility] T VISIT MODERATE SEVERITY OFFICE 97412 [facility] TRA OUTPATIEN 5 5 [place] T NEW 45 ORTHOPAED MINUTES [facility] EMERGENCY 49641 RACHEL RIVAS [facility] [address] [facility] T VISIT P MODERATE SEVERITY EMERGENCY 79591 RACHEL 4 4 [facility] INC T VISIT LOW/MODER SEVERITY HOSPITAL RACHEL - 4 4 [facility] OUTPATIEN INC T OFFICE 24011 [facility] MEDRANO OUTPATIEN 4 4 PHYSICIAN CHUCK T VISIT S GROUP 25 MINUTES OFFICE 22180 [facility] RHONDA OUTPATIEN 4 4 PHYSICIAN PONCHO T VISIT S GROUP 10 MINUTES OFFICE 12382 [facility] RHONDA OUTPATIEN 4 4 PHYSICIAN PONCHO T VISIT S GROUP 15 MINUTES OFFICE 68024 [facility] RHONDA OUTPATIEN 4 4 PHYSICIAN [place]ONCHO T VISIT S GROUP 10 MINUTES HOSPITAL RACHEL - 4 4 [facility] OUTPATIEN INC T OFFICE 32070 [facility] RHONDA OUTPATIEN 4 4 PHYSICIAN PONCHO T VISIT S GROUP 10 MINUTES EMERGENCY 66926 [facility] 4 4 [facility] T VISIT PHYS HIGH/URGE NT SEVERITY OFFICE 69096 [facility] RHONDA OUTPATIEN 4 4 PHYSICIAN PONCHO T VISIT S GROUP 10 MINUTES HOSPITAL RACHEL - 4 4 [facility] OUTPATIEN INC HOSPITAL RACHEL - 4 4 [facility] OUTPATIEN INC T OFFICE 36994 [facility] RHONDA OUTPATIEN 4 4 PHYSICIAN PONCHO T VISIT S GROUP 15 MINUTES OFFICE 87499 [facility] RHONDA OUTPATIEN 4 4 PHYSICIAN PONCHO T VISIT S GROUP 10 MINUTES HOSPITAL RACHEL - 4 4 [facility] OUTPATIEN INC HOSPITAL RACHEL - 4 4 [facility] OUTPATIEN INC T OFFICE 63252 [facility] RHONDA OUTPATIEN 4 4 PHYSICIAN PONCHO T VISIT S GROUP 10 MINUTES EMERGENCY 00371 RHONDA RHONDA 4 4 [facility] DEPARTMEN T VISIT MODERATE SEVERITY EMERGENCY 34306 [facility] DEPT 4 4 ROMEL ROMEL VISIT HIGH SEVERITY& THREAT FUNJ EMERGENCY 19141 RHONDA ELLIS DEPT 4 4 PON[facility] PONCHO VISIT HIGH SEVERITY& THREAT FUNCJ OFFICE 59399 DENIZ GUAMAN OUTPATIEN 3 3 DON DON T VISIT 15 MINUTES HOSPITAL RACHEL - 3 3 [facility] OUTPATIEN [facility] T OFFICE 41473 DENIZ GUAMAN OUTPATIEN 3 3 DON DON T VISIT 15 MINUTES EMERGENCY 19814 BARBARA WAGNER 3 3 EMERGENCY [facility] DEPARTMEN SERVICES T VISIT HIGH/URGE NT SEVERITY EMERGENCY 58684 RACHEL 3 3 [facility] DEPARTMEN INC T VISIT MODERATE SEVERITY HOSPITAL RACHEL - 3 3 [facility] OUTPATIEN [facility] T OFFICE 72531 RACHEL RAMOS OUTPATIEN [address] RACHEL - 0 0 [facility] OUTPATIEN [facility] RACHEL - 0 0 [facility] OUTPATIEN [facility] OFFICE 76982 JAMIE NEELY OUTPATIEN 0 0 MEDICAL [facility] T VISIT SERV 10 FOUNDATIO MINUTES OFFICE 11232 [place] NEELY OUTPATIEN 0 0 MEDICAL CLAIR T NEW 45 SERV MINUTES FOUNDATIO OFFICE 10726 DENIZ GUAMAN OUTPATIEN 0 0 DON R DON R T VISIT 15 MINUTES [facility] - 0 0 N OUTPATIEN [facility] RACHEL - 0 0 [facility] OUTPATIEN [facility] T OFFICE 83905 [facility] OUT[facility] 0 0 [facility] J T VISIT 5 CLINIC OF MINUTES [facility] RACHEL - 0 0 [facility] OUTPATIEN INC T OFFICE 56806 RACHEL OUTPATIEN 0 0 [facility] T VISIT INC 10 MINUTES HOSPITAL RACHEL - 0 0 [facility] OUTPATIEN INC T EMERGENCY 63222 RACHEL 0 0 [facility] DEPARTMEN INC T VISIT LOW/MODER SEVERITY HOSPITAL RACHEL - 0 0 [facility] OUTPATIEN INC T EMERGENCY 27891 BARBARA ELLIS, 0 0 EMERGENCY [facility] DEPARTMEN SERVICES T VISIT MODERATE ASSOCIATE SEVERITY S EMERGENCY 75503 RACHEL 0 0 [facility] DEPARTMEN INC T VISIT LIMITED/M [facility] RACHEL - 0 0 [facility] OUTPATIEN INC T EMERGENCY 51172 BARBARA LYNN, 0 0 [facility] O T VISIT HIGH/URGE ASSOCIATE NT S SEVERITY OFFICE 04116 SCALF, SCALF, CONSULTAT 0 0 PROMISE VIRGEN A ION NEW/ESTAB PATIENT 40 MIN HOSPITAL RACHEL - 0 0 [facility] OUTPATIEN INC T EMERGENCY 68861 RACHEL 0 0 [facility] DEPARTMEN INC T VISIT MODERATE SEVERITY EMERGENCY 39813 BARBARA ELLIS, DEPT 0 0 EMERGENCY [facility] VISIT SERVICES HIGH SEVERITY& ASSOCIATE THREAT S [facility] OFFICE 60586 DENIZ GUAMAN OUTPATIEN 0 0 DON R DON R T VISIT 15 MINUTES HOSPITAL RACHEL - 0 0 [facility] OUTPATIEN INC T OFFICE 46467 [facility] 9 9 [facility] Singh T VISIT CLINIC OF 15 MINUTES [facility] OFFICE 84344 DENIZ GUAMAN OUTPATIEN 9 9 DON R DON R T VISIT 15 MINUTES EMERGENCY 53909 BARBARA ELLIS DEPT 9 9 EMERGENCY [facility] VISIT SERVICES HIGH SEVERITY& ASSOCIATE THREAT S FUNCJ EMERGENCY 97959 RACHEL 9 9 [facility] DEPARTMEN INC T VISIT MODERATE SEVERITY HOSPITAL RACHEL - 9 9 [facility] OUTPATIEN INC T EMERGENCY 66915 RACHEL 9 9 [facility] DEPARTMEN INC T VISIT LOW/MODER SEVERITY EMERGENCY 11451 BARBARA GALVAN, 9 9 EMERGENCY [facility] SERVICES T VISIT HIGH/URGE ASSOCIATE NT S SEVERITY HOSPITAL RACHEL - 9 9 [facility] OUTPATIEN INC T EMERGENCY 90013 BARBARA ELLIS, 9 9 [facility] T VISIT MODERATE ASSOCIATE SEVERITY S HOSPITAL RACHEL - 9 9 [facility] OUTPATIEN INC T HOSPITAL RACHEL - 9 9 [facility] OUTPATIEN INC T EMERGENCY 58495 BARBARA MOORE, 9 9 EMERGENCY [facility] SERVICES M T VISIT HIGH/URGE ASSOCIATE NT S SEVERITY EMERGENCY 71065 RACHEL 9 9 [facility] DEPARTMEN INC T VISIT MODERATE SEVERITY OFFICE 00137 DENIZ GUAMAN OUTPATIEN 9 9 DON R DON R T VISIT 15 MINUTES HOSPITAL RACHEL - 9 9 [facility] OUTPATIEN INC T EMERGENCY 16276 BARABRA OCONNOR, 9 9 EMERGENCY [facility] SERVICES T VISIT MODERATE ASSOCIATE SEVERITY S HOSPITAL RACHEL - 9 9 [facility] OUTPATIEN INC T EMERGENCY 07939 RACHEL 9 9 [facility] DEPARTMEN INC T VISIT LOW/MODER SEVERITY OFFICE 16853 DENIZ GUAMAN OUTPATIEN 9 9 DON R DON R T VISIT 15 MINUTES EMERGENCY 41684 BARBARA ELLIS, 9 9 [facility] T VISIT HIGH/URGE ASSOCIATE NT S SEVERITY HOSPITAL RACHEL - 9 9 [facility] OUTPATIEN INC T EMERGENCY 18470 RACHEL 9 9 [facility] DEPARTMEN INC T VISIT MODERATE SEVERITY HOSPITAL RACHEL - 9 9 [facility] OUTPATIEN INC T EMERGENCY 49103 BARBARA SMALL, 9 9 EMERGENCY [facility] DEPARTMEN SERVICES T VISIT MODERATE ASSOCIATE SEVERITY S EMERGENCY 92554 RACHEL 9 9 [facility] DEPARTMEN INC T VISIT LIMITED/M [facility] RACHEL - 9 9 [facility] OUTPATIEN INC T EMERGENCY 04932 RACHEL 9 9 [facility] DEPARTMEN INC T VISIT LIMITED/M [facility] RACHEL - 9 9 [facility] OUTPATIEN INC T HOSPITAL RACHEL - 9 9 [facility] OUTPATIEN INC T EMERGENCY 62635 BARBARA LYNN, 9 9 EMERGENCY [facility] DEPARTMEN SERVICES O T VISIT MODERATE ASSOCIATE SEVERITY S EMERGENCY 52493 RACHEL 9 9 [facility] DEPARTMEN INC T VISIT LIMITED/M INOR PROB HOSPITAL RACHEL - 9 9 [facility] OUTPATIEN INC T EMERGENCY 34684 ELIZABETH ELLIS, 9 9 [facility] T VISIT ON MODERATE SEVERITY HOSPITAL RACHEL - 9 9 [facility] OUTPATIEN INC T EMERGENCY 71055 ELIZABETH ELLIS, 9 9 [facility] T VISIT ON HIGH/URGE NT SEVERITY HOSPITAL RACHEL - 8 8 [facility] OUTPATIEN INC T EMERGENCY 53596 RACHEL 8 8 [facility] INC T VISIT LOW/MODER SEVERITY
--- OUTSIDE RECORDS SUMMARY | 2016-10-12 17:20 | External Medical Summary Rpt ---
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 VISIT MODERATE SEVERITY OFFICE 57216 [facility] PHYSICIAN CHUCK T VISIT S GROUP 15 MINUTES HOSPITAL RACHEL - 6 6 [facility] 25058 [facility] 6 6 [facility] T VISIT LOW/MODER SEVERITY EMERGENCY 98772 DAVION ELLIS 6 6 PHYSICIAN [facility] S, [facility] T VISIT MODERATE SEVERITY OFFICE 10844 [facility] TRA OUTPATIEN 5 5 [place] T NEW 45 ORTHOPAED MINUTES [facility] EMERGENCY 63989 RACHEL RIVAS [facility] 5 5 [facility] T VISIT P MODERATE SEVERITY EMERGENCY 31967 RACHEL 4 4 [facility] INC T VISIT LOW/MODER SEVERITY HOSPITAL RACHEL - 4 4 [facility] OUTPATIEN INC T OFFICE 75413 [facility] MEDRANO OUTPATIEN 4 4 PHYSICIAN CHUCK T VISIT S GROUP 25 MINUTES OFFICE 00272 [facility] RHONDA OUTPATIEN 4 4 PHYSICIAN [place] T VISIT S GROUP 10 MINUTES OFFICE 42693 [facility] RHONDA OUTPATIEN 4 4 PHYSICIAN [place] T VISIT S GROUP 15 MINUTES OFFICE 37235 [facility] RHONDA OUTPATIEN 4 4 PHYSICIAN [place] T VISIT S GROUP 10 MINUTES HOSPITAL RACHEL - 4 4 [facility] OUTPATIEN INC T OFFICE 68913 [facility] RHONDA OUTPATIEN 4 4 PHYSICIAN PONCHO T VISIT S GROUP 10 MINUTES EMERGENCY 52980 [facility] 4 4 [facility] EMERGENCY T VISIT PHYS HIGH/URGE NT SEVERITY OFFICE 50558 [facility] RHONDA OUTPATIEN 4 4 PHYSICIAN [place]ON[place] T VISIT S GROUP 10 MINUTES HOSPITAL RACHEL - 4 4 [facility] OUTPATIEN INC HOSPITAL RACHEL - 4 4 [facility] OUTPATIEN INC T OFFICE 02360 [facility] RHONDA OUTPATIEN 4 4 PHYSICIAN PONCHO T VISIT S GROUP 15 MINUTES OFFICE 56041 [facility] RHONDA OUTPATIEN 4 4 PHYSICIAN PONCHO T VISIT S GROUP 10 MINUTES HOSPITAL RACHEL - 4 4 [facility] OUTPATIEN INC HOSPITAL RACHEL - 4 4 [facility] OUTPATIEN INC T OFFICE 54097 [facility] RHONDA OUTPATIEN 4 4 PHYSICIAN PONCHO T VISIT S GROUP 10 MINUTES EMERGENCY 91005 RHONDA RHONDA 4 4 [facility]ON[facility] PONCHO DEPARTMEN T VISIT MODERATE SEVERITY EMERGENCY 20292 [facility] DEPT 4 4 ROMEL ROMEL VISIT HIGH SEVERITY& THREAT FUNJ EMERGENCY 69495 RHONDA ELLIS DEPT 4 4 PONCHO PONCHO VISIT HIGH SEVERITY& THREAT FUNCJ OFFICE 44719 DENIZ GUAMAN OUTPATIEN 3 3 DON DON T VISIT 15 MINUTES HOSPITAL RACHEL - 3 3 [facility] OUTPATIEN [facility] T OFFICE 89012 DENIZ GUAMAN OUTPATIEN 3 3 DON DON T VISIT 15 MINUTES EMERGENCY 17673 BARBARA WAGNER 3 3 EMERGENCY [facility] DEPARTMEN SERVICES T VISIT HIGH/URGE NT SEVERITY EMERGENCY 95994 RACHEL 3 3 [facility] DEPARTMEN INC T VISIT MODERATE SEVERITY HOSPITAL RACHEL - 3 3 [facility] OUTPATIEN [facility] T OFFICE 36877 RACHEL RAMOS OUTPATIEN [address] RACHEL - 0 0 [facility] OUTPATIEN [facility] RACHEL - 0 0 [facility] OUTPATIEN [facility] OFFICE 62825 JAMIE NEELY OUTPATIEN 0 0 MEDICAL CLAIR T VISIT SERV 10 FOUNDATIO MINUTES OFFICE 20386 [place] NEELY OUTPATIEN 0 0 MEDICAL CLAIR T NEW 45 SERV MINUTES FOUNDATIO OFFICE 83594 DENIZ GUAMAN OUTPATIEN 0 0 DON R DON R T VISIT 15 MINUTES [facility] 0 0 N OUTPATIEN [facility] RACHEL - 0 0 [facility] OUTPATIEN [facility] T OFFICE 13710 [facility] 0 0 [facility] T VISIT 5 CLINIC OF MINUTES [facility] H[facility]PITAL RACHEL - 0 0 [facility] OUTPATIEN INC T OFFICE 00927 RACHEL OUTPATIEN 0 0 [facility] T VISIT INC 10 MINUTES HOSPITAL RACHEL - 0 0 [facility] OUTPATIEN INC T EMERGENCY 45708 RACHEL 0 0 [facility] DEPARTMEN INC T VISIT LOW/MODER SEVERITY HOSPITAL RACHEL - 0 0 [facility] OUTPATIEN INC T EMERGENCY 01639 BARBARA ELLIS, 0 0 EMERGENCY [facility] DEPARTMEN SERVICES T VISIT MODERATE ASSOCIATE SEVERITY S EMERGENCY 81288 RACHEL 0 0 [facility] DEPARTMEN INC T VISIT LIMITED/M [facility] RACHEL - 0 0 [facility] OUTPATIEN INC T EMERGENCY 95636 BARBARA LYNN, 0 0 [facility] T VISIT HIGH/URGE ASSOCIATE NT S SEVERITY OFFICE 17489 SCALF, SCALF, CONSULTAT 0 0 PROMISE VIRGEN A ION NEW/ESTAB PATIENT 40 MIN HOSPITAL RACHEL - 0 0 [facility] OUTPATIEN INC T EMERGENCY 24460 RACHEL 0 0 [facility] DEPARTMEN INC T VISIT MODERATE SEVERITY EMERGENCY 94855 BARBARA ELLIS, DEPT 0 0 EMERGENCY [facility] VISIT SERVICES HIGH SEVERITY& ASSOCIATE THREAT S [facility] OFFICE 98844 DENIZ GUAMAN OUTPATIEN 0 0 DON R DON R T VISIT 15 MINUTES HOSPITAL RACHEL - 0 0 [facility] OUTPATIEN INC T OFFICE 17720 [facility] 9 9 [facility] Singh T VISIT CLINIC OF 15 MINUTES [facility] OFFICE 20716 DENIZ GUAMAN OUTPATIEN 9 9 DON R DON R T VISIT 15 MINUTES EMERGENCY 73162 BARBARA ELLIS DEPT 9 9 EMERGENCY [facility] VISIT SERVICES HIGH SEVERITY& ASSOCIATE THREAT S FUNCJ EMERGENCY 89651 RACHEL 9 9 [facility] DEPARTMEN INC T VISIT MODERATE SEVERITY HOSPITAL RACHEL - 9 9 [facility] OUTPATIEN INC T EMERGENCY 77839 RACHEL 9 9 [facility] DEPARTMEN INC T VISIT LOW/MODER SEVERITY EMERGENCY 29232 BARBARA GALVAN, 9 9 EMERGENCY [facility] SERVICES T VISIT HIGH/URGE ASSOCIATE NT S SEVERITY HOSPITAL RACHEL - 9 9 [facility] OUTPATIEN INC T EMERGENCY 56484 BARBARA ELLIS, 9 9 [facility] T VISIT MODERATE ASSOCIATE SEVERITY S HOSPITAL RACHEL - 9 9 [facility] OUTPATIEN INC T HOSPITAL RACHEL - 9 9 [facility] OUTPATIEN INC T EMERGENCY 44883 BARBARA MOORE, 9 9 EMERGENCY [facility] SERVICES M T VISIT HIGH/URGE ASSOCIATE NT S SEVERITY EMERGENCY 79210 RACHEL 9 9 [facility] DEPARTMEN INC T VISIT MODERATE SEVERITY OFFICE 28896 DENIZ GUAMAN OUTPATIEN 9 9 DON R DON R T VISIT 15 MINUTES HOSPITAL RACHEL - 9 9 [facility] OUTPATIEN INC T EMERGENCY 99184 BARBARA OCONNOR, 9 9 EMERGENCY [facility] SERVICES T VISIT MODERATE ASSOCIATE SEVERITY S HOSPITAL RACHEL - 9 9 [facility] OUTPATIEN INC T EMERGENCY 23072 RACHEL 9 9 [facility] DEPARTMEN INC T VISIT LOW/MODER SEVERITY OFFICE 47119 DENIZ GUAMAN OUTPATIEN 9 9 DON R DON R T VISIT 15 MINUTES EMERGENCY 76333 BARBARA ELLIS, 9 9 [facility] T VISIT HIGH/URGE ASSOCIATE NT S SEVERITY HOSPITAL RACHEL - 9 9 [facility] OUTPATIEN INC T EMERGENCY 78230 RACHEL 9 9 [facility] DEPARTMEN INC T VISIT MODERATE SEVERITY HOSPITAL RACHEL - 9 9 [facility] OUTPATIEN INC T EMERGENCY 37411 BARBARA SMALL, 9 9 EMERGENCY [facility] DEPARTMEN SERVICES T VISIT MODERATE ASSOCIATE SEVERITY S EMERGENCY 58184 RACHEL 9 9 [facility] DEPARTMEN INC T VISIT LIMITED/M [facility] RACHEL - 9 9 [facility] OUTPATIEN INC T EMERGENCY 11540 RACHEL 9 9 [facility] DEPARTMEN INC T VISIT LIMITED/M [facility] RACHEL - 9 9 [facility] OUTPATIEN INC T HOSPITAL RACHEL - 9 9 [facility] OUTPATIEN INC T EMERGENCY 93547 BARBARA LYNN, 9 9 EMERGENCY [facility] DEPARTMEN SERVICES O T VISIT MODERATE ASSOCIATE SEVERITY S EMERGENCY 66093 RACHEL 9 9 [facility] DEPARTMEN INC T VISIT LIMITED/M [facility]OR [facility]OB [facility]PITAL RACHEL - 9 9 [facility] OUTPATIEN INC T EMERGENCY 47804 ELIZABETH ELLIS, 9 9 [facility] CORPORATI T VISIT ON MODERATE SEVERITY HOSPITAL RACHEL - 9 9 [facility] OUTPATIEN INC T EMERGENCY 01066 ELIZABETH ELLIS, 9 9 [facility] CORPORATI T VISIT ON HIGH/URGE NT SEVERITY HOSPITAL RACHEL - 8 8 [facility] OUTPATIEN INC T EMERGENCY 79127 RACHEL 8 8 [facility] INC T VISIT LOW/MODER SEVERITY
--- OUTSIDE RECORDS SUMMARY | 2016-10-12 17:21 | External Medical Summary Rpt ---
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 tion in tion in tion in tion in 11:30 source source source source AM data data data data ETHNICI WHITE, No No No No Jan 02 TY NON-HIS informa informa informa informa 2013 PANIC tion in tion in tion in tion in 11:30 source source source source AM data data data data KIT 03-31-2 No No No No Jan 02 EXPIRAT 014 informa informa informa informa 2013 ION tion in tion in tion in tion in 11:30 DATE source source source source AM data data data data SYMPTOM NO No No No No Jan 02 S informa informa informa informa 2013 tion in tion in tion in tion in 11:30 source source source source AM data data data data REASON REVISIT No No No No Jan 02 FOR /ANNUAL informa informa informa informa 2013 REQUEST FAMILY tion in tion in tion in tion in 11:30 source source source source AM PLANNIN data data data data G VISIT SPECIME FEMALE No No No No Jan 02 N ENDOCER informa informa informa informa 2013 SOURCE VICAL tion in tion in tion in tion in 11:30 source source source source AM data data data data PREGNAN NO No No No No Jan 02 T informa informa informa informa 2013 tion in tion in tion in tion in 11:30 source source source source AM data data data data CHART NA No No No No Jan 02 NUMBER informa informa informa informa 2013 tion in tion in tion in tion in 11:30 source source source source AM data data data data Chlamyd NEGATIV No No No NEGATIV Nov 5 ia E informa informa informa E 2013 trachom tion in tion in tion in RESULT= 11:30 atis source source source WITHIN AM rRNA data data data NORMAL [Presen ce] in LIMITSP Unspeci OSITIVE fied specime RESULT= n by Probe & ABNORMA target LEQUIVO JEREMIAS amplifi RESULT= cation method INDETER MINATEU NSATISF ACTORY RESULT= INVALID Neisser NEGATIV No No No NEGATIV Nov 5 ia E informa informa informa E 2013 gonorrh tion in tion in tion in RESULT= 11:30 oeae source source source WITHIN AM rRNA data data data NORMAL [Presen ce] in LIMITSP Unspeci OSITIVE fied specime RESULT= n by Probe & ABNORMA target LEQUIVO JEREMIAS amplifi RESULT= cation method INDETER MINATEU NSATISF ACTORY RESULT= INVALID THE APTIMA COMBO 2 ASSAY IS NOT INTENDE D FOR THE EVALUAT ION OF SUSPECT EDSEXUA L ABUSE OR FOR OTHER MEDICO- LEGAL INDICAT IONS. FOR THOSE PATIENT S FORWHOM A FALSE POSITIV E RESULT MAY HAVE ADVERSE PSYCHO- SOCIAL IMPACT, [facility] MMENDS RETESTI NG.\.br \This report contain s patient informa tion that must be protect ed in accorda nce with the Health Insuran ce Portabi lity and Account ability Act. 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 in tion in tion in tion in 11:30 source source source source AM data data data data ETHNICI WHITE, No No No No Nov 5 TY NON-HIS informa informa informa informa 2013 PANIC tion in tion in tion in tion in 11:30 source source source source AM data data data data KIT -31-2 No No No No Jan 02 EXPIRAT 014 informa informa informa informa 2013 ION tion in tion in tion in tion in 11:30 DATE source source source source AM data data data data SYMPTOM NO No No No No Nov 5 S informa informa informa informa 2013 tion in tion in tion in tion in 11:30 source source source source AM data data data data REASON REVISIT No No No No Jan 02 FOR /ANNUAL informa informa informa informa 2013 REQUEST FAMILY tion in tion in tion in tion in 11:30 source source source source AM PLANNIN data data data data G VISIT SPECIME FEMALE No No No No Jan 02 N ENDOCER informa informa informa informa 2013 SOURCE VICAL tion in tion in tion in tion in 11:30 source source source source AM data data data data PREGNAN NO No No No No Jan 02 T informa informa informa informa 2013 tion in tion in tion in tion in 11:30 source source source source AM data data data data CHART NA No No No No Jan 02 NUMBER informa informa informa informa 2013 tion in tion in tion in tion in 11:30 source source source source AM data data data data Chlamyd Pending No No No No Jan 02 ia informa informa informa informa 2013 trachom tion in tion in tion in tion in 11:30 atis source source source source AM rRNA data data data data [Presen ce] in Unspeci fied specime n by Probe & target amplifi cation method Neisser Pending No No No \.br\Jan 02 ia informa informa informa is 2013 gonorrh tion in tion in tion in report 11:30 oeae source source source contain AM rRNA data data data s [Presen patient ce] in Unspeci informa fied tion specime that n by must be Probe & target protect ed in amplifi accorda cation nce method with the Health Insuran ce Portabi lity and Account ability Act. CHLAMYDIA AND GONORRHEA TESTING Observa Value Referen Units Interpr Notes Date tion ce etation Range COLLECT NA No No No No Dec 27 OR informa informa informa informa 2012 tion in tion in tion in tion in 3:00 PM source source source source data data data data ETHNICI WHITE, No No No No Dec 27 TY NON-HIS informa informa informa informa 2012 PANIC tion in tion in tion in tion in 3:00 PM source source source source data data data data KIT 04-30-2 No No No No Dec 27 EXPIRAT 013 informa informa informa informa 2012 ION tion in tion in tion in tion in 3:00 PM DATE source source source source data data data data SYMPTOM NO No No No No Dec 27 S informa informa informa informa 2012 tion in tion in tion in tion in 3:00 PM source source source source data data data data REASON REVISIT No No No No Dec 27 FOR /ANNUAL informa informa informa informa 2012 REQUEST FAMILY tion in tion in tion in tion in 3:00 PM source source source source PLANNIN data data data data G VISIT SPECIME URINE No No No No Dec 27 N informa informa informa informa 2012 SOURCE tion in tion in tion in tion in 3:00 PM source source source source data data data data PREGNAN NO No No No No Dec 27 T informa informa informa informa 2012 tion in tion in tion in tion in 3:00 PM source source source source data data data data CHART NA No No No No Dec 27 NUMBER informa informa informa informa 2012 tion in tion in tion in tion in 3:00 PM source source source source data data data data Chlamyd NEGATIV No No No NEGATIV Dec 27 ia E informa informa informa E 2012 trachom tion in tion in tion in RESULT= 3:00 PM atis source source source WITHIN rRNA data data data NORMAL [Presen ce] in LIMITSP Unspeci OSITIVE fied specime RESULT= n by Probe & ABNORMA target LEQUIVO JEREMIAS amplifi RESULT= cation method INDETER MINATEU NSATISF ACTORY RESULT= INVALID Neisser NEGATIV No No No NEGATIV Dec 27 ia E informa informa informa E 2012 gonorrh tion in tion in tion in RESULT= 3:00 PM oeae source source source WITHIN rRNA data data data NORMAL [Presen ce] in LIMITSP Unspeci OSITIVE fied specime RESULT= n by Probe & ABNORMA target LEQUIVO JEREMIAS amplifi RESULT= cation method INDETER MINATEU NSATISF ACTORY RESULT= INVALID THE APTIMA COMBO 2 ASSAY IS NOT INTENDE D FOR THE EVALUAT ION OF SUSPECT EDSEXUA L ABUSE OR FOR OTHER MEDICO- LEGAL INDICAT IONS. FOR THOSE PATIENT S FORWHOM A FALSE POSITIV E RESULT MAY HAVE ADVERSE PSYCHO- SOCIAL IMPACT, [facility] MMENDS RETESTI NG.\.br \This report contain s patient informa tion that must be protect ed in accorda nce with the Health Insuran ce Renee carrasco and Account ability Act. CHLAMYDIA AND GONORRHEA TESTING Observa Value Referen Units Interpr Notes Date tion ce etation Range COLLECT NA No No No No Dec 27 OR informa informa informa informa 2012 tion in tion in tion in tion in 3:00 PM source source source source data data data data ETHNICI WHITE, No No No No Dec 27 TY NON-HIS informa informa informa informa 2012 PANIC tion in tion in tion in tion in 3:00 PM source source source source data data data data KIT --2 No No No No Dec 27 EXPIRAT 013 informa informa informa informa 2012 ION tion in tion in tion in tion in 3:00 PM DATE source source source source data data data data SYMPTOM NO No No No No Dec 27 S informa informa informa informa 2012 tion in tion in tion in tion in 3:00 PM source source source source data data data data REASON REVISIT No No No No Dec 27 FOR /ANNUAL informa informa informa informa 2012 REQUEST FAMILY tion in tion in tion in tion in 3:00 PM source source source source PLANNIN data data data data G VISIT SPECIME URINE No No No No Dec 27 N informa informa informa informa 2012 SOURCE tion in tion in tion in tion in 3:00 PM source source source source data data data data PREGNAN NO No No No No Dec 27 T informa informa informa informa 2012 tion in tion in tion in tion in 3:00 PM source source source source data data data data CHART NA No No No No Dec 27 NUMBER informa informa informa informa 2012 tion in tion in tion in tion in 3:00 PM source source source source data data data data Chlamyd Pending No No No No Dec 27 ia informa informa informa informa 2012 trachom tion in tion in tion in tion in 3:00 PM atis source source source source rRNA data data data data [Presen ce] in Unspeci fied specime n by Probe & target amplifi cation method Neisser Pending No No No \.br\Th Dec 27 ia informa informa informa is 2011 gonorrh tion in tion in tion in report 3:00 PM oeae source source source contain rRNA data data data s [Presen patient ce] in Unspeci informa fied tion specime that n by must be Probe & target protect ed in amplifi accorda cation nce method with the Health Insuran ce Portabi lity and Account ability Act.
--- OUTSIDE RECORDS SUMMARY | 2016-10-12 17:21 | External Medical Summary Rpt ---
Author Author LEBRON Carlin, [employer] Organization [employer] Address Unknown Phone Unavailable Results CHLAMYDIA AND GONORRHEA TESTING Observa Value Referen Units Interpr Notes Date tion ce etation Range COLLECT STELLA No No No No Dec 5 OR CHAMBERLAIN informa informa informa informa 2013 CATARACT LENS GENERATOR tion in tion in tion in tion [...] MAY HAVE ADVERSE PSYCHO- SOCIAL IMPACT, [facility] MMENDS RETESTI NG.\.br \This report contain s patient informa tion that must be protect ed in accorda nce with the Health Insuran ce Portabi lity and Account ability Act. CHLAMYDIA AND GONORRHEA TESTING Observa Value Referen Units Interpr Notes Date tion ce etation Range COLLECT STELLA No No No No Jan 02 OR CHAMBERLAIN informa informa informa informa 2013 CATARACT LENS GENERATOR tion in tion in tion in tion [...] MAY HAVE ADVERSE PSYCHO- SOCIAL IMPACT, [facility] MMENDS RETESTI NG.\.br \This report contain s [...]
--- OUTSIDE RECORDS SUMMARY | 2016-10-12 17:21 | External Medical Summary Rpt ---
Demographics Preferred Language Cymro Marital Status Unknown Sikhism Affiliation Unknown Race Unknown Ethnic Group Unknown Author Author LEBRON Address Unknown Phone Immunization No patient found.
--- OUTSIDE RECORDS SUMMARY | 2016-10-12 17:21 | External Medical Summary Rpt ---
Demographics Preferred Language Singaporean Marital Status Unknown Hinduism Affiliation Unknown Race Unknown Ethnic Group Unknown Author Author LEBRON Address Unknown Phone Immunization No patient found.
[2016-10-12] MEDS ORDERED: GENTAMICIN O5 ML/BOT OP (18:02)
[2016-10-12] MEDS ORDERED: OMNICEF 300 MG300 MG PO (18:02)
[2016-10-12 18:03] VITALS: BP 102/66
== END 2016-10-12 18:04 | disposition home or self-care (01) ==
LOC: UTC 16:56
DX: J03.90 Acute tonsillitis, unspecified (principal); H10.9 Unspecified conjunctivitis

== ENCOUNTER 2017-01-04 11:55 | Emergency (ER) | payer MEDICAID ==
[~2017-01-04] VITALS: Ht 157.5 cm; Wt 71.7 kg
[~2017-01-04 11:55] MED LIST changes: +GENTAMICIN O5 ML/BOT OP; +OMNICEF 300 MG300 MG PO
--- OUTSIDE RECORDS SUMMARY | 2017-01-04 12:01 | External Medical Summary Rpt | CCD ---
Author Author [employer] Organization [employer] Address Unknown Phone Unavailable Purpose Continuity of Care Document - through 2016
--- OUTSIDE RECORDS SUMMARY | 2017-01-04 12:01 | External Medical Summary Rpt ---
Author Author LEBRON Carlin, [employer]BRON [employer] Organization [employer] Address Unknown Phone Unavailable Results Streptococcus pyogenes Ag [Presence] in Unspecified specimen Observa Value Referen Units Interpr Notes Date tion ce etation Range Strepto NOT NOTDETE No No LOT # Oct 12 coccus DETECTE CTED informa informa NA EXP 2016 pyogene D tion in tion in DATE NA 5:38 PM s Ag source source [Presen data data ce] in Unspeci fied specime n 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 in tion in tion in 11:30 source source source source AM data data data data ETHNICI WHITE, No No No No Jan 02 TY NON-HIS informa informa informa informa 2013 PANIC tion in tion in tion in tion in 11:30 source source source source AM data data data data KIT --2 No No No No Jan 02 EXPIRAT [...] data PREGNAN NO No No No No Nov 5 T informa informa informa informa 2013 tion in tion in tion in tion in 11:30 source source source source AM data data data data CHART NA No No No No Dec 5 NUMBER informa informa informa informa 2013 tion in tion in tion in tion in 11:30 source source source source AM data data data data Chlamyd NEGATIV No No No NEGATIV Jan 02 ia E informa informa informa E 2013 [...] MAY HAVE ADVERSE PSYCHO- SOCIAL IMPACT, [facility] RETESTI NG.\.br \This report contain s patient informa tion that must be protect ed in accorda nce with the Health Insuran ce Portabi lity and Account ability Act. 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] cation method Neisser Pending No No No \.br\Dec 27 ia informa informa informa is 2012 gonorrh tion in tion in tion [...]
--- OUTSIDE RECORDS SUMMARY | 2017-01-04 12:01 | External Medical Summary Rpt | CCD ---
Demographics Preferred Language Spanish Marital Status Unknown Restorationist Affiliation Unknown Race Unknown Ethnic Group Unknown Author Author , LEBRON DIANA Address Unknown Phone Immunization No patient found.
--- OUTSIDE RECORDS SUMMARY | 2017-01-04 12:01 | External Medical Summary Rpt ---
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 CHLAMYDIA AND GONORRHEA TESTING Observa Value Referen Units Interpr Notes Date tion ce etation Range COLLECT STELLA No No No No Jan 02 OR CHAMBERLAIN informa informa informa informa 2013 MECHANICAL STRIPER tion in tion in tion in tion [...]
--- OUTSIDE RECORDS SUMMARY | 2017-01-04 12:01 | External Medical Summary Rpt | CCD ---
Author Author , LEBRON Organization LEBRON Address Unknown Phone [email or web address] Care Team Providers Care Front Man Name Role Phone Abraham Malhotra MD, Unavailable Unavailable Abraham Germain MD, Unavailable Unavailable Salbador Eddy MD, Unavailable Unavailable Yessica Shaw MD, Unavailable Unavailable Abdirashid MCKAY DO, Unavailable Unavailable ELMA MCKAY DO Purpose Continuity of Care Document - 12-28-2011 through 2016 Problems Code Diagnosis DOS Provider Status 305.1 305.1 02-08-2013 [place] TOBACCO USE [facility] 466.0 466.0 ACUTE 02-08-[address] [facility] 493.90 493.90 02-08-2013 [place] ASTHMA, [facility] UNSPECIFIED Hospital 842.00 842.00 01-24-2013 Dheeraj SPRAIN OF [facility] E849.0 E849.0 01-24-2013 Dheeraj ACCIDENT IN [facility] E885.9 E885.9 FALL 01-24-2013 Dheeraj FROM [facility] SLIPPING, Hospital TRIPPING, OR STUMBLING [facility] [phone] OTH 12-14-2012 [place] [facility] 722.10 722.10 09-18-[address] [facility] DISPLACEMEN T V14.1 V14.1 09-18-2012 [place] HX-ANTIBIOT [facility] ALLERGY [facility] NEC V14.5 V14.5 09-18-2012 [place] HX-NARCOTIC [facility] V58.69 V58.69 OTH 09-18-2012 Dheeraj MED,LT,CURR [facility] ENT USE Hospital 784.0 784.0 06-27-2012 [facility] 307.81 307.81 05-02-2012 [facility] Allergies, Adverse Reactions, Alerts Type Drug Allergy [...] ia de te s n re d ON 00 12 0 No DA 37 [...] 64 20 ng ZA 42 13 er NM 0 IN Ac E ti 10 ve [...] ve AT E 60 MG /2 ML Vital Signs 02-08-2013 20:16 Name Value Interpretat Reference Comment ion Range BP 67 mm[Hg] Diastolic BP Systolic 84 mm[Hg] Heart 72 /min Rate/Pulse O2% 98 % Respiratory 18 /min Rate 02-08-2013 19:29 Name Value Interpretat Reference Comment ion Range BP 69 mm[Hg] Diastolic BP Systolic 132 mm[Hg] Heart 91 /min Rate/Pulse O2% 99 % Respiratory 20 /min Rate 11-27-2013 14:02 Name Value Interpretat Reference Comment ion [...] Order Detail nces retati t Range on Streptococcus pyogenes Ag [Presence] in Unspecified specimen (10-12-2016 17:38) Strepto NOT NOTDETE complet coccus [address] ed pyogene 17:38 D s Ag [Presen ce] in Unspeci fied specime n B-HCG Ur Ql (02-08-2013 19:00) B-HCG NEGATIV NEG complet Ur Ql 013 E ed 19:00 STREP SCREEN (RAPID) (02-08-2013 19:00) STREP NEGATIV complet SCREEN 013 E ed (RAPID) 19:00 URINALYSIS/COMPLETE (02-08-2013 19:00) URINE YELLOW YELLOW complet COLOR 013 ed 19:00 URINE CLEAR CLEAR complet APPEARA 013 ed NCE 19:00 URINE NEGATIV NEG complet GLUCOSE 013 E ed - 19:00 DIPSTIC K URINE NEGATIV NEG complet BILIRUB 013 E ed IN - 19:00 DIPSTIC K URINE 2 NEGATIV NEG complet KETONE 013 E mg/dL ed 19:00 URINE Greater 1.005-1 complet SPECIFI 013 than .030 ed C 19:00 or GRAVITY equal to 1.030 URINE 2 1+ NEG complet BLOOD 013 ed 19:00 URINE 02-08- 6.0 UNK 5.0-8.5 complet PH 013 ed 19:00 URINE 02-08-2 NEGATIV NEG complet PROTEIN 013 E mg/dL ed - 19:00 DIPSTIC K URINE 2 0.2 NEG complet UROBILI 013 E.U./dL ed NOGEN - 19:00 DIPSTIC K URINE 2 NEGATIV NEG complet NITRATE 013 E ed - 19:00 DIPSTIC K URINE 02-08-2 NEGATIV NEG complet LEUK 013 E ed ESTERAS 19:00 E URINE 02-08- OCC 0 complet RBC 013 rbc/hpf ed 19:00 URINE 02-08- 3-5 O complet WBC 013 wbc/hpf ed 19:00 URINE 10-20 0-5 complet SQUAMOU 013 #/hpf ed S CELLS 19:00 URINE 12-2 2+ O complet BACTERI 013 ed A 19:00 URINE -12-2 2+ OCC complet MUCUS 013 ed 19:00 [...] (01-02-2013 11:30) COLLECT STELLA complet OR 013 CHAMBRELAIN ed 11:30 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 complet 013 mg/dL 1 ed SerPl-m 22:40 Cnc Prot 12-14- 7.7 6.4-8.2 complet SerPl-m 013 gm/dL ed Cnc 22:40 Albumin 12-14- 4.0 3.4-5.0 complet 013 gm/dL ed SerPl-m 22:40 Cnc Globuli 12-14- 3.7 1.3-3.2 complet n 013 gm/dL ed Ser-mCn 22:40 c Albumin 12-14- 1.1 UNK 1.1-1.8 complet /Glob 013 ed SerPl-m 22:40 Rto Bilirub 12-14- 0.2 0.2-1.0 complet 013 mg/dL ed SerPl-m 22:40 Cnc AST 12-14- 17 U/L 15-37 complet SerPl-c 013 ed Cnc 22:40 ALT 12-14- 27 U/L 30-65 complet SerPl-c 013 ed Cnc 22:40 ALP 12-14- 108 U/L 50-136 complet SerPl-c 013 ed Cnc 22:40 T4 SerPl-mCnc (12-14-2012 22:40) T4 --2 7.5 4.7-13. complet SerPl-m 013 ug/dl 3 ed Cnc 22:40 THYROID STIM HORMONE (12-14-2012 22:40) THYROID 12-14-2 2.62 0.358-3 complet STIM 013 uIU/ml .740 ed HORMONE 22:40 CBC with AUTO DIFF (10-17-2013 22:40) WBC # 10-17-2 9.6 4.8-10. complet [...] by Probe & target amplifi cation method Encounters Encounter Start End Date Code Location Performer Type Date Emergency JHONNY MCKAY DO (ER) 3 19:12 3 20:16 [facility] Emergency JHONNY Eddy MD (ER) 3 12:48 3 14:06 [facility] Emergency JHONNY Shaw MD (ER) 3 22:22 3 23:29 [facility] Emergency JHONNY Shaw MD (ER) 3 00:15 3 03:00 [facility] Emergency JHONNY DIAZ (ER) 3 21:15 3 21:30 [facility] Emergency JHONNY Germain MD (ER) 3 13:32 3 15:22 [facility] Emergency JHONNY Carrera MD (ER) 3 00:03 3 00:16 [facility] Emergency JHONNY Malhotra MD (ER) 3 19:18 3 19:28 [facility]
--- OUTSIDE RECORDS SUMMARY | 2017-01-04 12:01 | External Medical Summary Rpt | CCD ---
Demographics Preferred Language Kittitian Marital Status Unknown Yazidism Affiliation Unknown Race Unknown Ethnic Group Unknown Author Author , LEBRON DIANA Address Unknown Phone Immunization No patient found.
--- OUTSIDE RECORDS SUMMARY | 2017-01-04 12:01 | External Medical Summary Rpt | CCD ---
Author Author , LEBRON Organization LEBRON Address Unknown Phone .[facility] Care Team Providers Care Bottom Buffer Name Role Phone Abraham Malhotra MD, Unavailable Unavailable Abraham Germain MD, Unavailable Unavailable Salbador Eddy MD, Unavailable Unavailable Yessica Shaw MD, Unavailable Unavailable Abdirashid MCKAY DO, Unavailable Unavailable ELMA MCKAY DO Purpose Continuity of Care Document - 12-28-2011 through 2016 Problems Code Diagnosis DOS Provider Status 305.1 305.1 02-08-2013 [place] TOBACCO USE [facility] 466.0 466.0 ACUTE 02-08-2013 [place] BRONCHITIS [facility] 493.90 493.90 02-08-2013 [place] ASTHMA, [facility] UNSPECIFIED Hospital 842.00 842.00 01-24-2013 Dheeraj SPRAIN OF [facility] E849.0 E849.0 01-24-2013 Dheeraj ACCIDENT IN [facility] E885.9 E885.9 FALL 01-24-2013 Dheeraj FROM [facility] SLIPPING, Hospital TRIPPING, OR STUMBLING [facility] [phone] OTH 12-14-2012 [place] [facility]ISE&[facility] 722.10 722.10 09-18-2012 [place] LUMBAR DISC [facility] DISPLACEMEN T V14.1 V14.1 09-18-2012 [place] HX-ANTIBIOT [facility] ALLERGY [facility] NEC V14.5 V14.5 09-18-2012 [place] HX-NARCOTIC [facility] V58.69 V58.69 OTH 09-18-2012 Dheeraj MED,LT,CURR [facility] ENT USE Hospital 784.0 784.0 06-27-2012 [facility] 307.81 307.81 05-02-2012 [facility] Allergies, Adverse Reactions, Alerts Type Drug [...] 64 20 ng ZA 42 13 er [place] 0 IN Ac E ti 10 ve [...] STELLA complet OR 013 CHAMBERLAIN 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, complet TY 013 NON-HIS ed [...] MCKAY DO (ER) 3 19:12 3 20:16 [facility] Emergency JHONNY Eddy MD (ER) 3 12:48 3 14:06 [facility] Emergency JHONNY Shaw MD (ER) 3 22:22 3 23:29 [facility] Emergency JHONNY Shaw MD (ER) 3 00:15 3 03:00 [facility] Emergency JHONNY DIAZ (ER) 3 21:15 3 21:30 [facility] Emergency JHONNY Germain MD (ER) 3 13:32 3 15:22 [facility] Emergency JHONNY Carrera MD (ER) 3 00:03 3 00:16 [facility] Emergency JHONNY Malhotra MD (ER) 3 19:18 3 19:28 [facility]
--- NOTE | 2017-01-04 12:19 | Urgent Treatment Center Report ---
See Addendum History of Present Issue Date/Time Seen by Provider 01/04/17 1218 Visit Reason Pt arrived:Walked Presenting Problem:FLU LIKE SYMPTOMS SINCE TUESDAY FEVER, N/V. Location if Accident: Onset of symptoms date/time:/ or onset unknown for:MEDICAL HX UNKNOWN Have you (or family members/close friends) recently traveled outside the [place]? N If Yes, where/when: Have you had exposure to infectious disease within the past month? TB? Other? Specify: c/o not feeling well. Schedule to start a new job tomorrow and requesting work excuse "just in case". Started w/ general malaise and low grade fevers on Tuesday. Tylenol helped. Vomiting started yesterday. Once yesterday morning. "ok " throughout the day then "it was on" starting last night. Nausea as well but no diarrhea. Abdominal cramping "and just general uneasy feeling" but no pain. Has tried taking pepto but couldn't keep it down. Trouble keeping down tylenol and/ or motrin now as well. No known sick contacts. Source patient Exam Limitations no limitations ALLERGIES Coded Allergies: azithromycin (04/05/16) codeine (04/05/16) Home Medications Reported Medications No Known Home Medications History Medical History General CAD? No Angina: No [place]: No Hypertension? No Hyperlipidemia? No CHF? No DVT? No PE? No COPD? No Asthma? Yes Anemia? No GERD? No Gastric ulcers? No GI Bleed? No Hernia? No Thyroid Problems? No Hypothyroidism? No CVA? No Seizures? No Diabetes? No Insulin Dependent: No Insulin Pump: No Home FSBS? No Renal Insuffiency? No UTI? No Stones? No BPH? No GB Disease: No Nephritic Syndrome? No Asplenia? No Hepatitis? Yes Sickle Cell Disease? No Arthritis? No Migraines? No Cataracts? No Glaucoma? No MRSA? No HIV? No TB? No Anxiety? Yes Depression? 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 Yes Additional hx: FORMER DRUG USER Immunization HX DT/Tetanus 5-10 Years Ago Flu 2YRSorMore Pneumonia NEVER Surgical Hx Previous Surgery?Y LEEP WISDOM TEETH TUBAL Family History Family HX Diabetes Yes CAD Yes Hypertension Yes Hyperlipidemia Yes Cancer Yes TB No Social History Smoking Hx Smoker: Current Every Day Smoker Tobacco: Yes Type Cigarettes Packs/day < 1 Pack Alcohol Alcohol: No Review of Systems All Other Systems Reviewed and Negative Constitutional see HPI Eyes denies drainage ENT denies: ear pain, nose discharge, nose congestion, throat pain. Respiratory denies cough Gastrointestinal see HPI Genitourinary denies: dysuria, frequency, hesitancy. Musculoskeletal joint pain ("just achy all over") Skin denies rash Psychiatric/Neurological denies headache Physical Exam Vital Signs Vital Signs Date Time Temp Pulse Resp B/P Pulse O2 O2 Flow FiO2 Ox Delivery Rate 01/04 1203 98.1 98 18 123/79 100 General Appearance normal appearance, no apparent distress Eye Exam - bilateral eye normal exam Ear, Nose, Throat normal ENT inspection Neck non-tender, supple Respiratory Status No: respiratory distress, productive cough, non productive cough. Lung Sounds anterior: lungs clear. posterior: lungs clear. bilateral: lungs clear. Cardiovascular regular rate/rhythm, no peripheral edema, no murmur Gastrointestinal normal bowel sounds, non tender, soft, no guarding, no rebound Back no CVA tenderness Neurologic alert, oriented x 3 Skin normal color, warm/dry Lymphatic no adenopathy Medical Decision Making LABS/Meds/Orders Pt receiving controlled substance in ED? No Results/Orders Laboratory Tests 01/04/17 1203: Influenza Type A Ag NOT DETECTED, Influenza Type B Ag NOT DETECTED Current Medication Orders Sig/[place] Start time Last Medication Dose Route Stop Time Status Admin Ondansetron HCl 0 .STK-MED ONE 01/04 1231 DC .ROUTE Ondansetron HCl 4 MG ONCE ONE 01/04 1230 DC 01/04 IM 01/04 1231 1234 Orders Procedure Date/time Status [facility] FLU A,B 01/04 1203 Complete Progress [facility] Progress Notes Date 01/04/17 Time 1255 Comment Doing well. Denies nausea. Feels zofran helped. Departure Departure Time of Disposition 1259 Disposition DC Home or Self Care(routine) Clinical Impression Primary Impression: Viral gastroenteritis Condition STABLE Referrals NO REFERRAL IMMEDIATELY for new or worsening symptoms OR no noticeable improvement over the next 48 hours. Patient Instructions DI for Viral Gastroenteritis -- Adult Additional Instructions * Monitor Temp. Seek treatment if fever develops. * Follow up immediately for new or worsening symptoms OR no noticeable improvement over the next 48 hours. * Increase fluids. Water, gatorade, powerade, juice OR pedialyte with limited formula/dairy in children. * No food is ok as long as you or your child is drinking. Once ready to eat, start bland. bananas, rice, applesauce, toast * Contagious until no diarrhea, vomiting, fever x 24 hours without medication * Avoid anti-diarrheals unless told otherwise. Best to let the virus run its course. Discharge Counseling Counseled pt/family regarding diagnosis, test results, medications/RX, home care, follow up needs Prescriptions Current Visit Scripts No Known Home Medications at 1301
[2017-01-04 13:04] VITALS: BP 123/79
== END 2017-01-04 13:06 | disposition home or self-care (01) ==
LOC: UTC 11:55
DX: A08.4 Viral intestinal infection, unspecified (principal); F17.210 Nicotine dependence, cigarettes, uncomplicated
CPT/HCPCS: J2405

== ENCOUNTER 2017-01-26 17:12 | Emergency (ER) | payer MEDICAID ==
[~2017-01-26] VITALS: Ht 157.5 cm; Wt 72.6 kg
[2017-01-26] MEDS ORDERED: ZOFRAN ODT4 MG PO (18:25)
--- NOTE | 2017-01-26 18:25 | Urgent Treatment Center Report ---
History of Present Issue Date/Time Seen by Provider 01/26/171813 Visit Reason Pt arrived:Walked Presenting Problem:VOMITING, FEVER, DIARRHEA TODAY Location if Accident: Onset of symptoms date/time:/ or onset unknown for:MEDICAL HX UNKNOWN Have you (or family members/close friends) recently traveled outside the [place]? N If Yes, where/when: Have you had exposure to infectious disease within the past month? TB? Other? Specify: c/o N/V/D/Fever. nausea started last night around 10pm. Woke up at 1am to both vomiting and diarrhea. Has vomited approx 6 times and diarrhea 6-8 times. Initially soft stools but now watery. Last vomited around noon and diarrhea last around 4pm. "It all seems to be slowing down". Needs work excuse for today due to symptoms. Fever 101 once today when checked but without treatment, resolved and no fever since. No known sick contacts. Source patient Exam Limitations no limitations ALLERGIES Coded Allergies: azithromycin (04/05/16) codeine (04/05/16) History Medical History General CAD? No Angina: No [place]: No Hypertension? No Hyperlipidemia? No CHF? No DVT? No PE? No COPD? No Asthma? Yes Anemia? No GERD? No Gastric ulcers? No GI Bleed? No Hernia? No Thyroid Problems? No Hypothyroidism? No CVA? No Seizures? No Diabetes? No Insulin Dependent: No Insulin Pump: No Home FSBS? No Renal Insuffiency? No UTI? No Stones? No BPH? No GB Disease: No Nephritic Syndrome? No Asplenia? No Hepatitis? Yes Sickle Cell Disease? No Arthritis? No Migraines? No Cataracts? No Glaucoma? No MRSA? No HIV? No TB? No Anxiety? Yes Depression? 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 Yes Additional hx: FORMER DRUG USER Immunization HX DT/Tetanus 5-10 Years Ago Flu 2YRSorMore Pneumonia NEVER Surgical Hx Previous Surgery?Y LEEP WISDOM TEETH TUBAL Family History Family HX Diabetes Yes CAD Yes Hypertension Yes Hyperlipidemia Yes Cancer Yes TB No Social History Smoking Hx Smoker: Current Every Day Smoker Tobacco: Yes Type Cigarettes Packs/day < 1 Pack Alcohol Alcohol: No Review of Systems All Other Systems Reviewed and Negative Constitutional no symptoms reported Eyes denies drainage ENT denies: nose discharge, nose congestion, throat pain. Respiratory denies cough Gastrointestinal see HPI, denies abdominal pain Genitourinary denies: discharge, dysuria, frequency, hesitancy, hematuria, other (no change urine color or odor). Musculoskeletal denies back pain, denies joint pain Skin denies rash Psychiatric/Neurological denies headache Physical Exam Vital Signs Vital Signs Date Time Temp Pulse Resp B/P Pulse O2 O2 Flow FiO2 Ox Delivery Rate 01/26 1733 98.2 90 18 135/95 100 General Appearance normal appearance, no apparent distress Ear, Nose, Throat normal ENT inspection Respiratory Status No: respiratory distress, productive cough, non productive cough. Lung Sounds anterior: lungs clear. posterior: lungs clear. bilateral: lungs clear. Cardiovascular regular rate/rhythm, no peripheral edema, no murmur Gastrointestinal normal bowel sounds, non tender, soft, no organomegaly, no pulsatile mass, no guarding, no rebound, no suprapubic tenderness, no bladder distention Back no CVA tenderness Neurologic alert, oriented x 3 Skin normal color, warm/dry Lymphatic no adenopathy Medical Decision Making LABS/Meds/Orders Pt receiving controlled substance in ED? No Departure Departure Time of Disposition 1821 Disposition DC Home or Self Care(routine) Clinical Impression Primary Impression: Viral gastroenteritis Secondary Impressions: Encounter to obtain excuse from work Condition STABLE Referrals Colin SEBASTIAN,Shawn Colon (Family) Follow up IMMEDIATELY for new or worsening symptoms OR no noticeable improvement over the next 48 hours. Patient Instructions DI for Viral Gastroenteritis -- Adult Additional Instructions * Monitor Temp. Low grade fevers typical. Follow up for fevers not responding to tylenol/motrin or greater than 101 as not typically with stomach virus. * Follow up immediately for new or worsening symptoms OR no noticeable improvement over the next 48 hours. * Increase fluids. Water, gatorade, powerade, juice OR pedialyte with limited formula/dairy in children. * No food is ok as long as you or your child is drinking. Once ready to eat, start bland. bananas, rice, applesauce, toast * Contagious until no diarrhea, vomiting, fever x 24 hours without medication * Avoid anti-diarrheals unless told otherwise. Best to let the virus run its course. Discharge Counseling Counseled pt/family regarding diagnosis, medications/RX, home care, follow up needs Prescriptions Current Visit Scripts Ondansetron (Zofran 4MG Odt) 4 MG PO Q8HP PRN nausea and vomiting #6 ODT at 1829
--- OUTSIDE RECORDS SUMMARY | 2017-01-26 18:25 | External Medical Summary Rpt | CCD ---
Author Author , LEBRON Organization LEBRON Address Unknown Phone Care Team Providers Care Supervisor Detasseling Crew Name Role Phone Abraham Malhotra MD, Unavailable Unavailable Abraham Germain MD, Unavailable Unavailable Salbador Germain MD [facility]available [facility] Unavailable Unavailable [place], [facility] Yessica Eddy MD, Unavailable Unavailable Yessica Shaw MD, Unavailable Unavailable Abdirashid MCKAY DO, Unavailable Unavailable ELMA MCKAY DO Purpose Continuity of Care Document - 04-29-2009 through 2016 Problems Code Diagnosis DOS Provider Status 305.1 305.1 02-08-2013 [place] TOBACCO USE [facility] 466.0 466.0 ACUTE 02-08-2013 Dheeraj BRONCHITIS [facility] 493.90 493.90 02-08-2013 Dheeraj ASTHMA, [facility] UNSPECIFIED Hospital 842.00 842.00 01-24-2013 Dheeraj SPRAIN OF [facility] E849.0 E849.0 01-24-2013 Dheeraj ACCIDENT IN [facility] E885.9 E885.9 FALL 01-24-2013 Dheeraj [address] [facility] SLIPPING, Hospital TRIPPING, OR STUMBLING [facility] [phone] OTH 12-14-2012 [place] [facility]AISE[facility] 722.10 722.10 09-18-2012 Dheeraj LUMBAR DISC [facility] DISPLACEMEN T V14.1 V14.1 09-18-2012 Dheeraj HX-ANTIBIOT [facility] ALLERGY [facility] NEC V14.5 V14.5 09-18-2012 Dheeraj HX-NARCOTIC [facility] V58.69 V58.69 OTH 09-18-2012 Dheeraj MED,LT,[facility] 784.0 784.0 06-27-2012 [place] HEADACHE [facility] 307.81 307.81 05-02-2012 [place] TENSION [facility] L03.90 CELLULITIS, UNSPECIFIED M51.16 INTERVERTEB RAL DISC DISORDERS W RADICULOPAT HY, LUMBAR REGION M54.5 LOW BACK PAIN R51 HEADACHE Allergies, Adverse Reactions, Alerts Type Drug Allergy [...] 64 20 ng ZA 42 13 er DC 0 IN Ac E ti 10 ve [...] ve AT E 60 MG /2 ML ME 59 11 11 3 1. 84 [...] 0 60 30 EA 19 CL Ac DC 09 -0 -[address] 87 AR ti OX 30 8- 8- 00 SI 23 KE ve EN 14 20 20 DE 90 10 10 DE 50 1 PH RE 0 AR K MG MA J CY TA BL OF ET CY NT HI AN A BU 00 09 10 1 60 30 EA 19 GH Ac DC 18 -2 -[address] 34 AN [...] 20 DE ZA 11 10 10 RA DC 0 PH ME IN AR SH E MA 10 CY MG OF TA CY BL NT ET HI AN A BU 00 09 09 1 60 30 EA 19 GH Ac DC 18 -2 -[address] 34 AN [...] .0 ST 50 EP ti IC 12 SI 95 HE ve IL 61 20 20 DE NS LI 30 10 10 N 5 PH DO 50 AR N 0 MA R MG CY CA OF PS UL CY E NT HI AN A NA 00 07 07 0 [address] Ac SO 08 -2 -[address] 50 EP ti NE 51 8 SI 96 HE ve X 28 20 20 DE NS 50 80 10 10 1 PH DO MC AR N G MA R NA CY SA L OF SP RA CY Y NT HI AN A PE 45 03 03 1 60 1 EA 16 CL Ac RM 80 -0 -[address] 59 AR ti ET 20 2 6- 00 SI 62 KE ve HR 26 20 20 DE IN 93 10 10 DE 7 PH RE 5% AR K MA J CR CY EA M OF CY NT HI AN A PE 45 03 03 1 60 1 EA 16 CL Ac RM 80 -0 -[address] 59 AR ti ET 20 2 00 SI 62 KE ve HR 26 20 20 DE IN 93 10 10 DE 7 PH RE 5% AR K MA J CR CY EA M OF CY NT HI AN A Vital Signs 02-08-2013 20:16 Name Value Interpretat [...] Order Detail nces retati t Range on Rapid influenza A and B antigen detectio (01-04-2017 12:03) INFLUEN NOT NOT complet ZA B 017 DETECTE DETECTD ed ANTIGEN 12:03 D Comment: LOT # @[id number] EXP DATE @2018-05-28 Influen NOT NOT complet za A ag 017 DETECTE DETECTD ed QL 12:03 D NOT DETECTE D L Influenza virus A+B Ag [Presence] in Unspecified specimen (01-04-2017 12:03) Influen NOT NOT complet za 017 DETECTE DETECTD ed virus A 12:03 D Ag [Presen ce] in Unspeci fied specime n INFLUEN NOT NOT complet ZA B 017 DETECTE DETECTD ed ANTIGEN 12:03 D Streptococcus pyogenes Ag [Presence] in Unspecified specimen (10-12-2016 17:38) Strepto NOT NOTDETE complet coccus 017 DETECTE CTED ed pyogene 17:38 D s Ag [Presen ce] in Unspeci fied specime n B-HCG Ur Ql (02-08-2013 19:00) B-HCG NEGATIV NEG complet Ur Ql 013 E ed 19:00 STREP SCREEN (RAPID) (02-08-2013 19:00) STREP 02-08- NEGATIV complet SCREEN 013 E ed (RAPID) 19:00 URINALYSIS/COMPLETE (02-08-2013 19:00) URINE YELLOW YELLOW complet COLOR 013 ed 19:00 URINE 02-08-2 CLEAR CLEAR complet APPEARA 013 ed NCE 19:00 URINE 02-08-2 NEGATIV NEG complet GLUCOSE 013 E ed - 19:00 DIPSTIC K URINE 02-08-2 NEGATIV NEG complet BILIRUB 013 E ed IN - 19:00 DIPSTIC K URINE 02-08-2 NEGATIV NEG complet KETONE 013 E mg/dL ed 19:00 URINE 02-08-2 Greater 1.005-1 complet SPECIFI 013 than .030 ed C 19:00 or GRAVITY equal to 1.030 URINE 02-08-2 1+ NEG complet BLOOD 013 ed 19:00 URINE 02-08-2 6.0 UNK 5.0-8.5 complet PH 013 ed 19:00 URINE 02-08-2 NEGATIV NEG complet PROTEIN 013 E mg/dL ed - 19:00 DIPSTIC K URINE 02-08-2 0.2 NEG complet UROBILI 013 E.U./dL ed NOGEN - 19:00 DIPSTIC K URINE 02-08-2 NEGATIV NEG complet NITRATE 013 E ed - 19:00 DIPSTIC K URINE 02-08-2 NEGATIV NEG complet LEUK 013 E ed ESTERAS 19:00 E URINE 12-12-2 OCC 0 complet RBC 013 rbc/hpf ed 19:00 URINE 12-12-2 3-5 O complet WBC 013 wbc/hpf ed 19:00 URINE 12-12-2 10-20 0-5 complet SQUAMOU 013 #/hpf ed S CELLS 19:00 URINE 12-12-2 2+ O complet BACTERI 013 ed A 19:00 URINE 12-12-2 2+ OCC complet MUCUS 013 ed 19:00 [...] STELLA complet [place] 013 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, 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 TY 013 NON-HIS ed [...] SerPl-m 013 mg/dL ed Cnc 22:40 ESTIMAT 12-14- 87 50-200 complet ED 013 ML/MIN ed CREATIN 22:40 CHARI CLEARAN CE GFR 68 59- complet (ESTIMA [...] 22:40 THYROID STIM HORMONE (12-14-2012 22:40) THYROID 10-17-2 2.62 0.358-3 complet STIM 013 uIU/ml .740 [...] 013 #/hpf ed S CELLS 22:40 URINE 1+ O complet BACTERI 013 ed A [...] MCKAY DO (ER) 3 19:12 3 20:16 [facility] Emergency JHONNY Eddy MD (ER) 3 12:48 3 14:06 [facility] Emergency JHONNY Shaw MD (ER) 3 22:22 3 23:29 [facility] Emergency JHONNY Shaw MD (ER) 3 00:15 3 03:00 [facility] Emergency JHONNY DIAZ (ER) 3 21:15 3 21:30 [facility] Emergency JHONNY Germain MD (ER) 3 13:32 3 15:22 [facility] Emergency JHONNY Carrera MD (ER) 3 00:03 3 00:16 [facility] Emergency JHONNY Malhotra MD (ER) 3 19:18 3 19:28 [facility]
--- OUTSIDE RECORDS SUMMARY | 2017-01-26 18:25 | External Medical Summary Rpt | CCD ---
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 Name Role Phone Abraham Malhotra MD, Unavailable Unavailable Abraham Germain MD, Unavailable Unavailable Salbador Germain MD [facility], [facility] Unavailable [facility] Unavailable Unavailable [place], [facility] [place] Yessica Eddy MD, Unavailable Unavailable Yessica Shaw MD, Unavailable Unavailable Abdirashid MCKAY DO, Unavailable Unavailable ELMA MCKAY DO Purpose Continuity of Care Document - 04-29-2009 through 2016 Problems Code Diagnosis DOS Provider Status 305.1 305.1 02-08-2013 [place] TOBACCO USE [facility] 466.0 466.0 ACUTE 02-08-2013 Dheeraj BRONCHITIS [facility] 493.90 493.90 02-08-2013 Dheeraj ASTHMA, [facility] UNSPECIFIED Hospital 842.00 842.00 01-24-2013 Dheeraj SPRAIN OF [facility] E849.0 E849.0 01-24-2013 Dheeraj ACCIDENT IN [facility] E885.9 E885.9 FALL 01-24-2013 Dheeraj FROM [facility] SLIPPING, Hospital TRIPPING, OR STUMBLING [facility] [phone] OTH 12-14-2012 [place] [facility]ISE&FAT [facility] 722.10 722.10 09-18-2012 Dheeraj 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 [...] 64 20 ng ZA 42 13 er MI 0 IN Ac E ti 10 ve [...] 0 60 30 EA 19 CL Ac MI 09 -0 -[address] 87 AR ti OX 30 8- 8- 00 SI 23 KE ve EN 14 20 20 DE 90 10 10 DE 50 1 PH RE 0 AR K MG MA J CY TA BL OF ET CY NT HI AN A BU 00 09 10 1 60 30 EA 19 GH Ac MI 18 -2 -[address] 34 AN [...] 20 DE ZA 11 10 10 RA MI 0 PH ME IN AR SH E MA 10 CY MG OF TA CY BL NT ET HI AN A BU 00 09 09 1 60 30 EA 19 GH Ac MI 18 -2 -[address] 34 AN [...] ed ANTIGEN 12:03 D Comment: LOT # @[id number] EXP DATE @2018-05-28 Influen NOT NOT complet [...] STELLA complet OR 013 CHAMBERLAIN ed 11:30 [employer]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, complet TY 013 NON-HIS [...] MCKAY DO (ER) 3 19:12 3 20:16 [facility] Emergency JHONNY Eddy MD (ER) 3 12:48 3 14:06 [facility] Emergency JHONNY Shaw MD (ER) 3 22:22 3 23:29 [facility] Emergency JHONNY Shaw MD (ER) 3 00:15 3 03:00 [facility] Emergency JHONNY DIAZ (ER) 3 21:15 3 21:30 [facility] Emergency JHONNY Germain MD (ER) 3 13:32 3 15:22 [facility] Emergency JHONNY Carrera MD (ER) 3 00:03 3 00:16 [facility] Emergency JHONNY Malhotra MD (ER) 3 19:18 3 19:28 [facility]
--- OUTSIDE RECORDS SUMMARY | 2017-01-26 18:25 | External Medical Summary Rpt ---
Author Author LEBRON Carlin, [employer]BRON [employer] Organization [employer] Address Unknown Phone Unavailable Results Influenza virus A+B Ag [Presence] in Unspecified specimen Observa Value Referen Units Interpr Notes Date tion ce etation Range Influen NOT NOT No No No Dec 7 za DETECTE DETECTD informa informa informa 2017 virus A D tion in tion in tion in 12:03 Ag source source source PM [Presen data data data ce] in Unspeci fied specime n INFLUEN NOT NOT No No LOT # Dec 7 ZA B DETECTE DETECTD informa informa @[id number] ANTIGEN D tion in tion in 3 EXP 12:03 source source DATE PM data data @05-28 Streptococcus pyogenes Ag [Presence] in Unspecified specimen Observa Value Referen Units Interpr Notes Date tion ce etation Range Strepto NOT NOTDETE No No LOT # Sep 15 coccus DETECTE CTED informa informa NA EXP 2017 pyogene D tion in tion in DATE NA 5:38 PM s Ag source source [Presen data data ce] in Unspeci fied specime n CHLAMYDIA AND GONORRHEA TESTING Observa Value Referen Units Interpr Notes Date tion ce etation Range COLLECT STELLA No No No No Dec 5 OR CHAMBERLAIN informa informa informa informa 2013 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 in tion in tion in 11:30 source source source source AM data data data data ETHNICI WHITE, No No No No Dec 5 TY NON-HIS informa informa informa informa 2013 PANIC tion in tion in tion in tion in 11:30 source source source source AM data data data data KIT 05-28- No No No No Jan 02 EXPIRAT [...] INVALID Neisser NEGATIV No No No NEGATIV Jan 02 [...] MAY HAVE ADVERSE PSYCHO- SOCIAL IMPACT, [facility] SATELL[facility] MMENDS RETESTI NG.\.br \This report contain s patient informa tion that must be protect ed in accorda nce with the Health Insuran ce Portabi lity and Account ability Act. 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
--- OUTSIDE RECORDS SUMMARY | 2017-01-26 18:25 | External Medical Summary Rpt | CCD ---
Demographics Preferred Language Swiss Marital Status Unknown Rastafari Affiliation Unknown Race Unknown Ethnic Group Unknown Author Author , LEBRON DIANA Address Unknown Phone Immunization Unable to retrieve immunization data due to connection failure with Immunization Registry. Please try again later.
--- OUTSIDE RECORDS SUMMARY | 2017-01-26 18:25 | External Medical Summary Rpt ---
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
--- OUTSIDE RECORDS SUMMARY | 2017-01-26 18:25 | External Medical Summary Rpt | CCD ---
Demographics Preferred Language Bermudian Marital Status Unknown Advent Affiliation Unknown Race Unknown Ethnic Group Unknown Author Author , LEBRON DIANA Address Unknown Phone Immunization Unable to retrieve immunization data due to connection failure with Immunization Registry. Please try again later.
[2017-01-26 18:26] VITALS: BP 135/95
== END 2017-01-26 18:26 | disposition home or self-care (01) ==
LOC: UTC 17:12
DX: A08.4 Viral intestinal infection, unspecified (principal)